=== PATIENT | male | born 1935 | race Two or more races ===

== ENCOUNTER 2021-01-12 20:16 | Emergency (ER) | payer MEDICARE, OTHER ==
[~2021-01-12] VITALS: Ht 177.8 cm; Wt 70.3 kg
--- NOTE | 2021-01-12 20:20 | NUR ---
[id number] FROM HOME C/O BLEEDING FROM SHUNT X40MIN WOOD MACHINE CARVER LEFT UPPER EXTREMITY. THE PATIENT DENIES PAIN. IN ROOM AIR AND DENIES SOB. RESPIRATION REGULAR AND UNLABORED. ATTACHED ON A MONITOR. WILL CONTINUE TO MONITOR.
[2021-01-12 20:57] LABS: BASOPHILS # (AUTO) 0.1 /CMM (0.0-0.2); BASOPHILS % (AUTO) 1.3 % (0.0-2.0); EOSINOPHILS % (AUTO) 1.6 % (0.0-6.0); HEMATOCRIT 32 % (39-51); HEMOGLOBIN 10.2 g/dL (13.5-17.5); LYMPHOCYTES # (AUTO) 0.7 /CMM (0.8-4.8); LYMPHOCYTES % (AUTO) 12.5 % (20.0-44.0); MEAN CORPUSCULAR HGB CONC 32 g/dl (31.0-36.0); MEAN CORPUSCULAR VOLUME 115 fL (80-96); MONOCYTES # (AUTO) 0.5 /CMM (0.1-1.30); MONOCYTES % (AUTO) 9.4 % (2.0-12.0); NEUTROPHILS # (AUTO) 4.2 /CMM (1.8-8.9); NEUTROPHILS % (AUTO) 75.2 % (43.0-81.0); PLATELET COUNT (AUTO) 117 /CMM (150-450); RED BLOOD CELL COUNT(AUTO) 2.76 MIL/uL (4.5-6.0); WHITE BLOOD COUNT (AUTO) 5.6 K/uL (4.3-11.0)
[2021-01-12 21:06] LABS: CALCIUM, SERUM 8.9 mg/dL (8.5-10.1); CARBON DIOXIDE 35 mmol/L (21-32); CHLORIDE 104 mmol/L (98-107); CREATININE 3.2 mg/dL (0.6-1.3); GLUCOSE 109 mg/dL (74-106); POTASSIUM 3.8 mmol/L (3.5-5.1); SODIUM SERUM 143 mmol/L (136-145); UREA NITROGEN, BLOOD 16 mg/dL (7-18)
[2021-01-12 21:45] LABS: BAND % (MANUAL) 2 % (0.0-5.0); EOSINOPHILS % (MANUAL) 1 % (0-4); LYMPHOCYTES % (MANUAL) 10 % (16-48); MONOCYTES % (MANUAL) 9 % (0-11.0); NEUTROPHILS % (MANUAL) 78 (42-76)
--- NOTE | 2021-01-12 23:18 | NUR ---
[facility] ETA 30-40MINUTES
--- NOTE | 2021-01-13 00:02 | NUR ---
GAVE REPORT TO EMS ALONG WITH D/C PAPERWORK
[2021-01-13 00:09] VITALS: BP 145/77
== END 2021-01-13 00:02 | disposition home or self-care (01) ==
LOC: ER 20:19
DX: T82.511A Breakdown (mechanical) of surgically created arteriovenous shunt, initial encounter (principal); I12.0 Hypertensive chronic kidney disease with stage 5 chronic kidney disease or end stage renal disease; E11.22 Type 2 diabetes mellitus with diabetic chronic kidney disease; N18.6 End stage renal disease; J44.9 Chronic obstructive pulmonary disease, unspecified; Z99.2 Dependence on renal dialysis
CPT/HCPCS: 36415; 71045; 80048; 85007; 85025; 85730; 99284; A6403

== ENCOUNTER 2021-04-28 19:15 | Inpatient (IN) | payer MEDICARE, OTHER ==
[~2021-04-28] VITALS: Ht 175.3 cm; Wt 72.1 kg
--- NOTE | 2021-04-28 19:30 | NUR ---
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 PATIENT IS A/O X 4, RR EVEN AND UNLABORED, NO SIGNS OF SOB NOTED. PATIENT CONNECTED TO NET MOBILE DEVELOPER AND POX.
--- NOTE | 2021-04-28 19:46 | NUR ---
MOVE SHEET SUBMITTED AND CALLED FOR TELE BED.
[2021-04-28 19:48] LABS: BASOPHILS # (AUTO) 0.1 K/uL (0.0-0.2); BASOPHILS % (AUTO) 0.8 % (0.0-2.0); EOSINOPHILS % (AUTO) 2.2 % (0.0-6.0); HEMATOCRIT 29 % (39-51); HEMOGLOBIN 9.2 g/dL (13.5-17.5); LYMPHOCYTES # (AUTO) 2.4 K/uL (0.8-4.8); LYMPHOCYTES % (AUTO) 28.3 % (20.0-44.0); MEAN CORPUSCULAR HGB CONC 32 g/dl (31.0-36.0); MEAN CORPUSCULAR VOLUME 111 fL (80-96); MONOCYTES # (AUTO) 1.3 K/uL (0.1-1.30); MONOCYTES % (AUTO) 15.5 % (2.0-12.0); NEUTROPHILS # (AUTO) 4.5 K/uL (1.8-8.9); NEUTROPHILS % (AUTO) 53.2 % (43.0-81.0); PLATELET COUNT (AUTO) 172 K/uL (150-450); RED BLOOD CELL COUNT(AUTO) 2.63 MIL/uL (4.5-6.0); WHITE BLOOD COUNT (AUTO) 8.4 K/uL (4.3-11.0)
[2021-04-28 20:01] LABS: CALCIUM, SERUM 9.1 mg/dL (8.5-10.1); CARBON DIOXIDE 21 mmol/L (21-32); CHLORIDE 104 mmol/L (98-107); CREATININE 6.2 mg/dL (0.6-1.3); GLUCOSE 173 mg/dL (74-106); POTASSIUM 3.9 mmol/L (3.5-5.1); SODIUM SERUM 140 mmol/L (136-145); UREA NITROGEN, BLOOD 50 mg/dL (7-18)
[2021-04-28] MEDS ORDERED: ACETAMINOPHEN 325 MG TABLET PO ONE (20:30)
[2021-04-28] MEDS ORDERED: ACETAMINOPHEN 325 MG TABLET ONE (20:33)
[2021-04-28] MEDS ORDERED: ALBUMIN 25% 50 ML IV ONE (20:47)
[2021-04-28] MEDS ORDERED: ALBUMIN 25% 12.5 GM/50 ML BOTTLE IV ONE (21:00)
[2021-04-28] MEDS ORDERED: IV NS 0.9% 250 ML BAG IV ONE (21:00)
[2021-04-28 21:13] LABS: BAND % (MANUAL) 4 % (0.0-5.0); EOSINOPHILS % (MANUAL) 3 % (0-4); LYMPHOCYTES % (MANUAL) 31 % (16-48); MONOCYTES % (MANUAL) 10 % (0-11.0); NEUTROPHILS % (MANUAL) 52 (42-76)
--- NOTE | 2021-04-28 21:52 | NUR ---
GOT BED 327-1
--- NOTE | 2021-04-28 22:14 | NUR ---
REPORT GIVEN TO BRAD RAY
--- NOTE | 2021-04-28 22:26 | NUR ---
PT WAS TRANSFERRED TO 327 UNDER ACLS
[2021-04-28 22:30] VITALS: BP_SYST 109; BP_SYST 133; BP_DIAS 49; BP_DIAS 51
--- NOTE | 2021-04-28 22:30 | NUR ---
HIDE SALTERASBESTOS TEXTILE SUPERVISOR NOTE PT TRANSPORTED VIA GURNEY TO UNIT AT THIS TIME. PT ADMITTED TO TELE UNDER DR. RACHEL FERRER FOR ADMITTING DX OF DIALYSIS ACCESS BLEED, ANEMIA, AND GENERALIZED WEAKNESS. A/O X4, JORDANIAN-SPEAKING. PT'S SON, BENJIE, AT BEDSIDE AND STATED THAT HE WILL OBTAIN LIST OF PT'S HOME MEDS. PT STABLE ON ROOM AIR. NO SOB OR S/S OF RESPIRATORY DISTRESS NOTED. PT ON EXTERNAL DOG BREEDER READING ST AT 102 BPM. PT HAS NO C/O PAIN OR DISCOMFORT AT THIS TIME. IV ACCESS IN RIGHT AC #20. DRESSING NOTED OVER LEFT ARM A/V FISTULA. PT ORIENTED TO STAFF, ROOM, AND UNIT. SAFETY MEASURES MAINTAINED. BED IN LOWEST LOCKED POSITION, HOB ELEVATED, SIDE RAILS UP X2. CALL LIGHT AND TABLE WITHIN REACH. WILL CONTINUE TO MONITOR.
--- NOTE | 2021-04-28 22:40 | NUR ---
PT'S SON, BENJIE, AT BEDSIDE AND STATED THAT HE WILL OBTAIN LIST OF PT'S HOME MEDS. HE CAN ALSO BE REACHED AT .
[2021-04-28] MEDS ORDERED: MAGNESIUM HYDROXIDE 30 ML UDC PO PRN (23:00)
[2021-04-28] MEDS ORDERED: ONDANSETRON HCL/PF 4 MG/2 ML VIAL IVP PRN (23:00)
[2021-04-28] MEDS ORDERED: DEXTROSE 50%-WATER 50 ML DISP.SYRIN IV PRN (23:00)
[2021-04-28] MEDS ORDERED: ZOLPIDEM TARTRATE 5 MG TABLET PO PRN (23:00)
[2021-04-28] MEDS ORDERED: Z GUARD REMEDY 2 OZ OINT TP PRN (23:00)
[2021-04-29] VITALS: BP 146/71
[2021-04-29 04:00] VITALS: BP 128/62
[2021-04-29 06:55] LABS: BASOPHILS % (AUTO) 0.4 % (0.0-2.0); EOSINOPHILS % (AUTO) 0.5 % (0.0-6.0); HEMATOCRIT 23 % (39-51); HEMOGLOBIN 7.4 g/dL (13.5-17.5); LYMPHOCYTES # (AUTO) 0.7 K/uL (0.8-4.8); LYMPHOCYTES % (AUTO) 9.6 % (20.0-44.0); MEAN CORPUSCULAR HGB CONC 32 g/dl (31.0-36.0); MEAN CORPUSCULAR VOLUME 109 fL (80-96); MONOCYTES # (AUTO) 0.7 K/uL (0.1-1.30); MONOCYTES % (AUTO) 9.5 % (2.0-12.0); NEUTROPHILS # (AUTO) 6.2 K/uL (1.8-8.9); PLATELET COUNT (AUTO) 131 K/uL (150-450); RED BLOOD CELL COUNT(AUTO) 2.12 MIL/uL (4.5-6.0); WHITE BLOOD COUNT (AUTO) 7.7 K/uL (4.3-11.0)
[2021-04-29 07:10] LABS: CARBON DIOXIDE 26 mmol/L (21-32); CHLORIDE 106 mmol/L (98-107); CREATININE 6.9 mg/dL (0.6-1.3); GLUCOSE 177 mg/dL (74-106); MAGNESIUM 1.9 mg/dL (1.8-2.4); POTASSIUM 4.2 mmol/L (3.5-5.1); SODIUM SERUM 144 mmol/L (136-145); UREA NITROGEN, BLOOD 57 mg/dL (7-18)
[2021-04-29 07:13] LABS: IRON, SERUM 47 ug/dl (50-175); TOTAL IRON BINDING CAPACITY 106 ug/dl (250-450)
--- NOTE | 2021-04-29 07:15 | NUR ---
PT REFUSED ACCUCHECK AT THIS TIME. EDUCATED PT ON RISKS OF REFUSING ACCUCHECK AND PT UNDERSTANDS. WILL CONTINUE TO MONITOR.
--- NOTE | 2021-04-29 07:15 | NUR ---
RN OPENING NOTE RECEIVED PATIENT IN BED. A/O X4. WALLISIAN SPEAKING. ON ROOM AIR, NO SOB NOTED. IN NO APPARENT DISTRESS. TELE READING SHOWS SR 76 WITH PAC. IV ACCESS ON R AC #20 G, INTACT AND PATENT. SAFETY MEASURES MAINTAINED. BED IN LOWEST POSITION, BRAKES LOCKED. SIDE RAILS UP X2. CALL LIGHT WITHIN REACH. WILL CONTINUE PLAN OF CARE.
--- NOTE | 2021-04-29 07:18 | NUR ---
GOLF CLUB MANAGER CLOSING NOTE PT IS AWAKE IN BED. A/O X4, BELIZEAN-SPEAKING. PT STABLE ON ROOM AIR. NO SOB OR S/S OF RESPIRATORY DISTRESS NOTED. PT ON EXTERNAL NURSING ATTENDANT READING ST AT 100 BPM. PT HAS NO C/O PAIN OR DISCOMFORT AT THIS TIME. IV ACCESS IN RIGHT AC #20. DRESSING NOTED OVER LEFT ARM A/V FISTULA. ALL NEEDS HAVE BEEN MET. SAFETY PRECAUTIONS MAINTAINED AT ALL TIMES. BED IN LOWEST LOCKED POSITION, HOB ELEVATED, SIDE RAILS UP X2. CALL LIGHT AND TABLE WITHIN REACH. WILL ENDORSE TO ONCOMING NURSE FOR RUDDY.
[2021-04-29] MEDS: BLOOD SUGAR DIAGNOSTIC 1 EACH STRIP IN SCH ×5 (07:27→23:09)
[2021-04-29] MEDS: ACETAMINOPHEN 325 MG TABLET PO PRN (08:10)
[2021-04-29 10:42] LABS: CHOLESTEROL 106 mg/dL (<200); HDL CHOLESTEROL 20 mg/dL (40-60); LDL 62 mg/dL (0-99); TRIGLYCERIDES 109 mg/dL (30-150)
[2021-04-29 11:46] LABS: BAND % (MANUAL) 2 % (0.0-5.0); LYMPHOCYTES % (MANUAL) 10 % (16-48); MONOCYTES % (MANUAL) 5 % (0-11.0); MYELOCYTES % 4 % (0-0); NEUTROPHILS % (MANUAL) 79 (42-76)
[2021-04-29 12:00] VITALS: BP 154/69
--- NOTE | 2021-04-29 12:12 | NUR ---
RN NOTE PATIENT REFUSED ACCUCHECK. HE SAID HE'S TIRED AND WANTS TO BE LEFT ALONE.
[2021-04-29 16:00] VITALS: BP 149/69
--- NOTE | 2021-04-29 18:20 | NUR ---
RN NOTE PATIENT SIGNED ALL PROCEDURE CONSENT FOR REPAIR OF POSSIBLE CATHETER.
--- NOTE | 2021-04-29 18:49 | NUR ---
RN NOTE PATIENT WAS BROUGHT DOWN TO THE OPERATING ROOM FOR POSSIBLE REPAIR OF CATHETER.
[2021-04-29] MEDS ORDERED: LIDOCAINE 1% INJ 50 ML MDV IJ ONE (19:21)
[2021-04-29] MEDS ORDERED: FENTANYL PF 100MCG/2ML AMPUL ONE (19:26)
[2021-04-29 20:00] VITALS: BP 127/51
--- NOTE | 2021-04-29 20:37 | NUR ---
TELE/RN OPENING NOTE PATIENT ARRIVED TO FLOOR FROM OR AT APPROX. 20:30. X RAY EQUIPMENT TESTER AT BEDSIDE. VS: BP 127/51 HR 77 RR 20 R 97.8 O2 SAT 100% ON 2L O2 VIA NC. PATIENT HAD REPAIR TO LEFT UPPER ARM FISTULA. DRESSING IS CLEAN, DRY AND INTACT. DRESSING TO REMAIN ON PER ORDERS. PATIENT TO HAVE DIALYSIS TOMORROW USING LOWER PART OF LEFT AV FISTULA. PATIENT TO RECEIVED 1 UNIT PRBC DURING DIALYSIS TOMORROW. PATIENT DENIES PAIN AT THIS TIME. ALERT AND ORIENTED X 4. PRIMARILY TELUGU SPEAKING. ORDER TO RESUME RENAL DIET IN PLACE. CALL LIGHT WITHIN REACH. ASPIRATION, FALL AND SAFETY PRECAUTIONS MAINTAINED. WILL CONTINUE TO MONITOR.
[2021-04-29] MEDS ORDERED: ANESTHESIA TRAY IN PYXIS 1 EA TRAY MC ONE (21:48)
--- NOTE | 2021-04-29 23:00 | NUR ---
TELE/RN NOTE PATIENTS BLOOD GLUCOSE LEVEL IS 160. PATIENT REFUSING INSULIN AT THIS TIME. WILL CONTINUE TO MONITOR.
[2021-04-30] VITALS (8 sets, daily range): BP systolic 132–154; BP diastolic 55–76
--- NOTE | 2021-04-30 06:03 | NUR ---
TELE/RN NOTE PATIENT REFUSED LABS THIS AM X 2 ATTEMPTS. WILL ENDORSE TO AM SHIFT RN.
[2021-04-30] MEDS: BLOOD SUGAR DIAGNOSTIC 1 EACH STRIP IN SCH ×5 (06:35→22:03)
--- NOTE | 2021-04-30 06:48 | NUR ---
TELE/RN NOTE PATIENT REFUSED BLOOD GLUCOSE CHECK THIS AM. PATIENT ALSO REFUSED ADL CARE THIS AM. PATIENT GETTING ANGRY/AGGRESSIVE TOWARDS BOXING MACHINE OPERATOR. REFUSED X 2 ATTEMPTS.
--- NOTE | 2021-04-30 06:49 | NUR ---
TELE/RN CLOSING NOTE PATIENT CURRENTLY SLEEPING IN BED. ALERT AND ORIENTED X 4. ABLE TO MAKE NEEDS KNOWN. DENIES PAIN AT THIS TIME. PATIENT IS ON ROOM AIR WITH NO S/SX OF RESPIRATORY DISTRESS NOTED. IV ACCESS TO RIGHT AC #20G INTACT, PATENT AND SALINE LOCKED. DRESSING TO LEFT AVF CLEAN, DRY AND INTACT. TELE MONITOR READING SR WITH PVCS/PACS. CALL LIGHT WITHIN REACH. ASPIRATION, FALL AND SAFETY PRECAUTIONS MAINTAINED. WILL ENDORSE PLAN OF CARE TO ONCOMING SHIFT.
[2021-04-30] MEDS: ACETAMINOPHEN 325 MG TABLET PO PRN (08:51)
[2021-04-30] MEDS ORDERED: ISOS60TA72 PO (08:55)
[2021-04-30] MEDS ORDERED: GLIM1TAB18 PO (08:55)
[2021-04-30] MEDS ORDERED: INSU100V30 IJ (08:55)
[2021-04-30] MEDS ORDERED: INSU100V7 SQ (08:55)
[2021-04-30] MEDS ORDERED: VALS160T2 PO (08:55)
[2021-04-30] MEDS ORDERED: CETI-233 PO (08:55)
[2021-04-30] MEDS ORDERED: TAMS-12 PO (08:55)
[2021-04-30] MEDS ORDERED: FLUO15CR2 TP (08:55)
[2021-04-30] MEDS ORDERED: FAMO40TA7 PO (08:55)
[2021-04-30] MEDS ORDERED: TRAM50TA2 PO (08:55)
[2021-04-30] MEDS ORDERED: ERGO500040 PO (08:55)
[2021-04-30] MEDS ORDERED: FEBU40TA PO (08:55)
[2021-04-30] MEDS ORDERED: CLON0.1T PO (08:55)
[2021-04-30] MEDS ORDERED: METO25TA6 PO (08:55)
[2021-04-30] MEDS ORDERED: MYRBETRIQ PO (08:55)
[2021-04-30] MEDS ORDERED: ASPI-1169 PO (08:55)
[2021-04-30] MEDS ORDERED: NIFE-35 PO (08:55)
[2021-04-30] MEDS ORDERED: ROPI0.255 PO (08:55)
[2021-04-30] MEDS ORDERED: ATOR80TA PO (08:55)
[2021-04-30] MEDS ORDERED: TICA90TA PO (08:55)
--- NOTE | 2021-04-30 14:37 | NUR ---
Patient is AOx4 Belgian speaking watching tv request PRN Tylenol and it was effective, left arm fistula with dressing, is fall risk with bed alarm, patient is scheduled for surgery on 05/01, NPO @midnight, medication list has been updated, patient at 100% of meal no SOD nor SOB, V/S are as followed B/P 137/55, P 82, Resp. 18, Temp.98.4, O2Sat. 96%, call light is within reach, will continue to monitor.
[2021-04-30 18:43] LABS: BASOPHILS % (AUTO) 0.3 % (0.0-2.0); EOSINOPHILS % (AUTO) 1.7 % (0.0-6.0); LYMPHOCYTES # (AUTO) 0.7 K/uL (0.8-4.8); LYMPHOCYTES % (AUTO) 10.7 % (20.0-44.0); MEAN CORPUSCULAR HGB CONC 32 g/dl (31.0-36.0); MEAN CORPUSCULAR VOLUME 110 fL (80-96); MONOCYTES # (AUTO) 0.6 K/uL (0.1-1.30); MONOCYTES % (AUTO) 9.3 % (2.0-12.0); NEUTROPHILS # (AUTO) 4.9 K/uL (1.8-8.9); PLATELET COUNT (AUTO) 138 K/uL (150-450); WHITE BLOOD COUNT (AUTO) 6.3 K/uL (4.3-11.0)
[2021-04-30 18:44] LABS: RED BLOOD CELL COUNT(AUTO) 1.87 MIL/uL (4.5-6.0)
[2021-04-30 18:48] LABS: HEMATOCRIT 20 % (39-51); HEMOGLOBIN 6.6 g/dL (13.5-17.5)
[2021-04-30 20:08] LABS: BAND % (MANUAL) 4 % (0.0-5.0); EOSINOPHILS % (MANUAL) 1 % (0-4); LYMPHOCYTES % (MANUAL) 14 % (16-48); MONOCYTES % (MANUAL) 6 % (0-11.0); NEUTROPHILS % (MANUAL) 75 (42-76)
--- NOTE | 2021-04-30 20:43 | NUR ---
FARM MORTGAGE AGENT NOTES CLARIFIED ORDERS WITH NABIL INSTRUMENT TECHNICIAN APPRENTICE FOR BT RE PT'S LOW H/H. WITH NEW ORDERS TO TRANSFUSE 1 UNIT PRBC. WILL CONTINUE TO MONITOR.
--- NOTE | 2021-04-30 22:08 | NUR ---
PEG DRIVER NOTES 1ST UNIT PRBC STARTED. VSS. AFEBRILE. WILL CONTINUE TO MONITOR.
--- NOTE | 2021-04-30 22:20 | NUR ---
NBA PLAYER NOTES SPOKE WITH SON BENJIE. NOTIFIED HIM RE RAMESH'S PROCEDURE FOR HIS DAD. MADE AWARE RE RISKS AND BENEFITS OF PROCEDURE. TRANSLATED WITH HIS DAD. PT AWARE. PT SIGNED CONSENTS. WILL CONTINUE TO MONITOR.
--- NOTE | 2021-04-30 22:23 | NUR ---
PITCH GATHERER NOTES 1ST UNIT PRBC TRANSFUSING WELL. NO S/SX OF TRANSFUSION RXN NOTED. VSS. AFEBRILE. WILL CONTINUE TO MONITOR
--- NOTE | 2021-04-30 22:47 | NUR ---
LINE PRODUCER NOTES SPOKE WITH DR PERRY (ANESTHESIOLOGIST) RE PT'S BT STATUS. PER MD, PT NEEDS AT LEAST 2 UNITS OF PRBC TONIGHT. ALSO WILL NEED 2 UNITS OF TYPE & CROSS BLOOD FOR RAMESH'S PROCEDURE. ORDERS CLARIFIED WITH EPIC GROUND DEFENCE OFFICER FERRER WELL TESTING OPERATOR. WITH NEW ORDERS MADE. ORDERS NOTED AND CARRIED OUT. WILL CONTINUE TO MONITOR.
[2021-05-01] VITALS (10 sets, daily range): BP systolic 117–174; BP diastolic 64–83
--- NOTE | 2021-05-01 01:10 | NUR ---
BEEF CATTLE FARM MANAGER NOTES 1ST UNIT PRBC COMPLETED. NO S/SX OF TRANSFUSION RXN NOTED. VSS. AFEBRILE. WILL CONTINUE TO MONITOR
--- NOTE | 2021-05-01 01:28 | NUR ---
CURING MACHINE OPERATOR NOTES 2ND UNIT PRBC STARTED. VSS. AFEBRILE. WILL CONTINUE TO MONITOR.
--- NOTE | 2021-05-01 01:43 | NUR ---
EDGER FEEDER NOTES 2ND UNIT PRBC TRANSFUSING WELL. NO S/SX OF TRANSFUSION RXN NOTED. VSS. AFEBRILE. WILL CONTINUE TO MONITOR
--- NOTE | 2021-05-01 04:23 | NUR ---
OSTEOPATHIC RESIDENT NOTES 2ND UNIT PRBC COMPLETED. NO S/SX OF TRANSFUSION RXN NOTED. VSS. AFEBRILE. WILL CONTINUE TO MONITOR
[2021-05-01] MEDS: BLOOD SUGAR DIAGNOSTIC 1 EACH STRIP IN SCH ×4 (06:03→22:25)
[2021-05-01 06:22] LABS: BASOPHILS % (AUTO) 0.4 % (0.0-2.0); EOSINOPHILS % (AUTO) 1.8 % (0.0-6.0); HEMATOCRIT 26 % (39-51); HEMOGLOBIN 8.4 g/dL (13.5-17.5); LYMPHOCYTES % (AUTO) 14.2 % (20.0-44.0); MEAN CORPUSCULAR HGB CONC 33 g/dl (31.0-36.0); MEAN CORPUSCULAR VOLUME 100 fL (80-96); MONOCYTES # (AUTO) 0.6 K/uL (0.1-1.30); MONOCYTES % (AUTO) 8.8 % (2.0-12.0); NEUTROPHILS # (AUTO) 5.1 K/uL (1.8-8.9); NEUTROPHILS % (AUTO) 74.8 % (43.0-81.0); PLATELET COUNT (AUTO) 130 K/uL (150-450); RED BLOOD CELL COUNT(AUTO) 2.55 MIL/uL (4.5-6.0); WHITE BLOOD COUNT (AUTO) 6.8 K/uL (4.3-11.0)
--- NOTE | 2021-05-01 06:33 | NUR ---
LEATHER CARVER NOTES AWAKE & RESPONSIVE. NOT IN ANY DISTRESS. NO SOB NOTED. DENIES ANY PAIN OR DISCOMFORT AT THIS TIME. ON TELE SR @ 83 WITH PACS WITH IV-HL PATENT & INTACT. AM CARE DONE. MONITORED ACCORDINGLY. CALL LIGHT WITHIN REACH. BED IN LOWEST POSITION. SR UP X 2 FOR SAFETY. WILL ENDORSE TO NEXT SHIFT.
[2021-05-01 07:04] LABS: CALCIUM, SERUM 8.8 mg/dL (8.5-10.1); CARBON DIOXIDE 24 mmol/L (21-32); CHLORIDE 106 mmol/L (98-107); GLUCOSE 79 mg/dL (74-106); MAGNESIUM 1.8 mg/dL (1.8-2.4); PHOSPHORUS 5.3 mg/dL (2.5-4.9); POTASSIUM 4.6 mmol/L (3.5-5.1); SODIUM SERUM 142 mmol/L (136-145); UREA NITROGEN, BLOOD 69 mg/dL (7-18)
[2021-05-01 07:09] LABS: CREATININE 7.7 mg/dL (0.6-1.3)
--- NOTE | 2021-05-01 07:42 | NUR ---
RN OPENING NOTE PT AWAKE IN BED RESTING. ON RA WITH NO SOB OR RESPIRATORY DISTRESS PRESENT. A/O X4 AND ECUADOREAN SPEAKING. BILINGUAL RESEARCH INTERVIEWER NEEDED. ON HIGHWAY PATROL OFFICER. NO EDEMA PRESENT. ON BEDREST WITH DIAPER PRESENT. L ARM FISTULA WITH DRESSING PRESENT. DRESSING TO NOT BE REMOVED PER MD ORDER. NPO POST MIDNIGHT DUE TO UPCOMING SURGERY. CONSENTS AND CHECKLIST IN CHART. IV PRESENT ON R AC 20G AND FLUSHES WELL. LABS AND ORDERS REVIEWED. SAFETY MEASURES IN PLACE. SIDE RAILS RAISED. BED LOWERED. CALL LIGHT WITHIN REACH. WILL CONTINUE TO MONITOR.
[2021-05-01 09:57] LABS: BAND % (MANUAL) 3 % (0.0-5.0); EOSINOPHILS % (MANUAL) 1 % (0-4); LYMPHOCYTES % (MANUAL) 17 % (16-48); MONOCYTES % (MANUAL) 11 % (0-11.0); MYELOCYTES % 1 % (0-0); NEUTROPHILS % (MANUAL) 67 (42-76)
--- NOTE | 2021-05-01 11:03 | NUR ---
RN NOTE PT DIALYSIS POSTPONED TO POST CATHETER PLACEMENT. LABS REVIEWED BY MD AND DIALYSIS NURSE. MD OKAYED FOR DIALYSIS POSTPONEMENT. WILL CONTINUE TO MONITOR.
--- NOTE | 2021-05-01 15:33 | NUR ---
RN NOTE PT TRANSFERRED TO OR FOR PROCEDURE. CONSENTS SIGNED BY PT AND PREPROCEDURE CHECKLIST DONE. PT IN STABLE CONDITION.
[2021-05-01] MEDS ORDERED: HEPARIN SODIUM, PORCINE 1,000 UNIT/ML VIAL ONE ×2 (15:51→16:52)
[2021-05-01] MEDS ORDERED: IOHEXOL 240MG/ML 50 ML IV ONE (15:51)
[2021-05-01] MEDS ORDERED: LIDOCAINE 1% INJ 50 ML MDV IJ ONE (15:52)
[2021-05-01] MEDS ORDERED: FENTANYL PF 100MCG/2ML AMPUL ONE (15:54)
[2021-05-01] MEDS ORDERED: Medication Not On Formulary EA (Cetirizine Hcl (Zyrtec) 10 MG) PO PRN (16:30)
[2021-05-01] MEDS ORDERED: ropiniROLE 0.5 MG TABLET PO PRN (16:30)
[2021-05-01] MEDS ORDERED: CLONIDINE HCL 0.1 MG TABLET PO PRN (16:30)
[2021-05-01] MEDS ORDERED: FLUOCINONIDE TP PRN (16:30)
[2021-05-01] MEDS ORDERED: [UNRECOGNIZED DRUG - OTHER] TP PRN (16:30)
[2021-05-01] MEDS: VALSARTAN 80 MG TABLET PO SCH (17:00)
[2021-05-01] MEDS: METOPROLOL TARTRATE 25 MG TABLET PO SCH (17:00)
[2021-05-01] MEDS ORDERED: INSULIN REGULAR, HUMAN 100 UNIT/ML 3 ML VIAL IJ SCH (17:30)
[2021-05-01] MEDS ORDERED: hydrALAZINE HCL IV 20 MG VIAL ONE (18:02)
--- NOTE | 2021-05-01 18:07 | NUR ---
RN NOTE PT 1700 MEDS NOT GIVEN TO PT NOT PRESENT IN DEPARTMENT. PT UNDERGOING PROCEDURE.
[2021-05-01] MEDS: TRAMADOL HCL 50 MG TABLET PO PRN (18:58)
[2021-05-01 19:17] LABS: BASOPHILS # (AUTO) 0.1 K/uL (0.0-0.2); BASOPHILS % (AUTO) 1.6 % (0.0-2.0); EOSINOPHILS % (AUTO) 2.6 % (0.0-6.0); HEMATOCRIT 27 % (39-51); HEMOGLOBIN 8.6 g/dL (13.5-17.5); LYMPHOCYTES # (AUTO) 0.5 K/uL (0.8-4.8); LYMPHOCYTES % (AUTO) 8.4 % (20.0-44.0); MEAN CORPUSCULAR HGB CONC 32 g/dl (31.0-36.0); MEAN CORPUSCULAR VOLUME 100 fL (80-96); MONOCYTES # (AUTO) 0.4 K/uL (0.1-1.30); MONOCYTES % (AUTO) 7.4 % (2.0-12.0); NEUTROPHILS # (AUTO) 4.4 K/uL (1.8-8.9); PLATELET COUNT (AUTO) 139 K/uL (150-450); RED BLOOD CELL COUNT(AUTO) 2.64 MIL/uL (4.5-6.0); WHITE BLOOD COUNT (AUTO) 5.6 K/uL (4.3-11.0)
--- NOTE | 2021-05-01 19:20 | NUR ---
RN CLOSING NOTE PT AWAKE IN BED RESTING. ON 2L NC O2 WITH NO SOB OR RESPIRATORY DISTRESS PRESENT. A/O X4 AND BELGIAN SPEAKING. ON FIELD PIPELINES SUPERVISOR. NO EDEMA PRESENT. ON BEDREST WITH DIAPER PRESENT. R CW HD CATH PRESENT. HD ORDERED TOMORROW. L ARM DRESSING PRESENT. WOUND CARE ORDERED. RENAL DIET. IV PRESENT ON R AC 20G AND FLUSHES WELL. LABS AND ORDERS REVIEWED. ROUTINE MEDS GIVEN. SAFETY MEASURES IN PLACE. SIDE RAILS RAISED. BED LOWERED. CALL LIGHT WITHIN REACH. REPORT GIVEN TO NIGHT NURSE FOR RUDDY.
[2021-05-01] MEDS ORDERED: VANCOMYCIN 500 MG in IV D5W 100 ML IV PRN (19:30)
[2021-05-01 19:43] LABS: CALCIUM, SERUM 8.4 mg/dL (8.5-10.1); CARBON DIOXIDE 27 mmol/L (21-32); CHLORIDE 106 mmol/L (98-107); GLUCOSE 85 mg/dL (74-106); POTASSIUM 4.8 mmol/L (3.5-5.1); SODIUM SERUM 143 mmol/L (136-145); UREA NITROGEN, BLOOD 69 mg/dL (7-18)
[2021-05-01 19:46] LABS: CREATININE 8.1 mg/dL (0.6-1.3)
[2021-05-01] MEDS: ACETAMINOPHEN 325 MG TABLET PO PRN (20:11)
[2021-05-01] MEDS ORDERED: VANCOMYCIN 1 GM in IV D5W 250 ML IV ONE (21:00)
[2021-05-01] MEDS ORDERED: ATORVASTATIN 40 MG TABLET PO SCH (22:00)
[2021-05-01] MEDS ORDERED: TAMSULOSIN 0.4 MG CAP.SR.24H PO SCH (22:00)
[2021-05-01] MEDS: INSULIN REGULAR, HUMAN 100 UNIT/ML 3 ML VIAL SQ PRN (22:28)
--- NOTE | 2021-05-01 22:30 | NUR ---
Nalini SALINAS Notes Patient's blood sugar at 2220 was 153mg/dL. Addendum: 05/02/21 at 0744 by CALVIN LOWE RN Pt refused his insulin.
[2021-05-02] VITALS: BP 144/98
[2021-05-02] MEDS: TRAMADOL HCL 50 MG TABLET PO PRN (04:04)
[2021-05-02 06:59] LABS: BASOPHILS % (AUTO) 0.3 % (0.0-2.0); EOSINOPHILS % (AUTO) 1.2 % (0.0-6.0); HEMATOCRIT 24 % (39-51); HEMOGLOBIN 7.9 g/dL (13.5-17.5); LYMPHOCYTES # (AUTO) 0.5 K/uL (0.8-4.8); LYMPHOCYTES % (AUTO) 6.5 % (20.0-44.0); MEAN CORPUSCULAR HGB CONC 33 g/dl (31.0-36.0); MEAN CORPUSCULAR VOLUME 100 fL (80-96); MONOCYTES # (AUTO) 0.5 K/uL (0.1-1.30); MONOCYTES % (AUTO) 5.7 % (2.0-12.0); NEUTROPHILS % (AUTO) 86.3 % (43.0-81.0); PLATELET COUNT (AUTO) 141 K/uL (150-450); RED BLOOD CELL COUNT(AUTO) 2.42 MIL/uL (4.5-6.0); WHITE BLOOD COUNT (AUTO) 8.1 K/uL (4.3-11.0)
[2021-05-02 07:20] LABS: CALCIUM, SERUM 8.3 mg/dL (8.5-10.1); CARBON DIOXIDE 25 mmol/L (21-32); CHLORIDE 105 mmol/L (98-107); GLUCOSE 86 mg/dL (74-106); MAGNESIUM 1.8 mg/dL (1.8-2.4); PHOSPHORUS 6.4 mg/dL (2.5-4.9); POTASSIUM 5.3 mmol/L (3.5-5.1); SODIUM SERUM 140 mmol/L (136-145); UREA NITROGEN, BLOOD 73 mg/dL (7-18)
[2021-05-02 07:24] LABS: CREATININE 7.9 mg/dL (0.6-1.3)
[2021-05-02] MEDS: BLOOD SUGAR DIAGNOSTIC 1 EACH STRIP IN SCH ×2 (07:34→12:30)
[2021-05-02] MEDS: INSULIN REGULAR, HUMAN 100 UNIT/ML 3 ML VIAL SQ PRN (07:36)
--- NOTE | 2021-05-02 07:44 | NUR ---
inspector of dredging Notes Patient's blood sugar at 0636 was 145mg/dL. Patient refused insulin.
--- NOTE | 2021-05-02 08:00 | NUR ---
received pt. in am alert and oriented. component inspector light often.micronesian speaking only.
[2021-05-02] MEDS: ACETAMINOPHEN 325 MG TABLET PO PRN (08:01)
[2021-05-02] MEDS: VALSARTAN 80 MG TABLET PO SCH (09:00)
[2021-05-02] MEDS: METOPROLOL TARTRATE 25 MG TABLET PO SCH (09:00)
[2021-05-02] MEDS ORDERED: NIFEdipine XL (30MG) 30 MG TAB PO SCH (09:00)
[2021-05-02] MEDS ORDERED: FAMOTIDINE (20 MG) 20 MG TABLET PO SCH (09:00)
[2021-05-02] MEDS ORDERED: ISOSORBIDE MONONITRATE (30MG) 30 MG TAB.SR.24H PO SCH (09:00)
[2021-05-02] MEDS ORDERED: Medication Not On Formulary EA ([Myrbetriq] 25 MG) PO SCH (09:00)
[2021-05-02] MEDS ORDERED: VANCOMYCIN 1 GM in IV D5W 250 ML IV ONE (10:00)
--- NOTE | 2021-05-02 12:47 | NUR ---
REFUSED INSULIN COVERAGE.
--- NOTE | 2021-05-02 15:30 | NUR ---
dialysis completed.bp down,2 liters removed.
--- NOTE | 2021-05-02 16:00 | NUR ---
refused discharge photos.
[2021-05-02 17:36] VITALS: BP 136/89
--- NOTE | 2021-05-02 17:44 | NUR ---
son here.given all instructions.lt. arm dressing done.son observing.to have furnace combination analyst do dressing.review of all home meds.all belongings sent home with pt.taken to lobby via w/c accompanied by andres and son.
== END 2021-05-02 17:03 | disposition home or self-care (01) | DRG 252 ==
LOC: ER 19:17 → TELE 22:05
PROVIDERS: ADMIT Nurse Practitioner Family; ATTEND Student in an Organized Health Care Education/Training Program
PROC: 03LY0ZZ Occlusion of Upper Artery, Open Approach (ICD-10-PCS; principal; 2021-04-29)
PROC: 30233N1 Transfusion of Nonautologous Red Blood Cells into Peripheral Vein, Percutaneous Approach (ICD-10-PCS; 2021-04-30)
PROC: 03LY0ZZ Occlusion of Upper Artery, Open Approach (ICD-10-PCS; 2021-05-01)
PROC: 03U80JZ Supplement Left Brachial Artery with Synthetic Substitute, Open Approach (ICD-10-PCS; 2021-05-01)
PROC: 05HM33Z Insertion of Infusion Device into Right Internal Jugular Vein, Percutaneous Approach (ICD-10-PCS; 2021-05-01)
PROC: B513YZA Fluoroscopy of Right Jugular Veins using Other Contrast, Guidance (ICD-10-PCS; 2021-05-01)
PROC: 5A1D70Z Performance of Urinary Filtration, Intermittent, Less than 6 Hours Per Day (ICD-10-PCS; 2021-05-02)
DX: T82.838A Hemorrhage due to vascular prosthetic devices, implants and grafts, initial encounter (principal); N18.6 End stage renal disease; I12.0 Hypertensive chronic kidney disease with stage 5 chronic kidney disease or end stage renal disease; Y83.2 Surgical operation with anastomosis, bypass or graft as the cause of abnormal reaction of the patient, or of later complication, without mention of misadventure at the time of the procedure; Y92.009 Unspecified place in unspecified non-institutional (private) residence as the place of occurrence of the external cause; Z20.822 Contact with and (suspected) exposure to COVID-19; E11.22 Type 2 diabetes mellitus with diabetic chronic kidney disease; D53.9 Nutritional anemia, unspecified; D63.1 Anemia in chronic kidney disease; J44.9 Chronic obstructive pulmonary disease, unspecified; M89.8X9 Other specified disorders of bone, unspecified site; Z99.2 Dependence on renal dialysis; I95.9 Hypotension, unspecified; R53.1 Weakness
CPT/HCPCS: 36415; 71045-TC; 80048-TC; 80061-TC; 80202-TC; 82962-TC; 83540-TC; 83735-TC; 84100-TC; 85025-TC; 85730-TC; 86850-TC; 87070-TC; 87081-TC; 90935-TC; 97116-TC; 97530-TC; A6253; A6403; A6407; C9803; G0378; J0360; J0690; J1644; J1815; J2405; J3010; J3370; J3490; J7050; J7060; P9016; P9047; Q9966

== ENCOUNTER 2021-06-01 16:45 | Inpatient (IN) | payer MEDICARE, OTHER ==
[~2021-06-01] VITALS: Ht 165.1 cm; Wt 70.4 kg
[~2021-06-01 16:45] MED LIST: ASPI-1169 PO; ATOR80TA PO; CETI-233 PO; CLON0.1T PO; ERGO500040 PO; FAMO40TA7 PO; FEBU40TA PO; FLUO15CR2 TP; GLIM1TAB18 PO; INSU100V30 IJ; INSU100V7 SQ; ISOS60TA72 PO; METO25TA6 PO; MYRBETRIQ PO; NIFE-35 PO; ROPI0.255 PO; TAMS-12 PO; TICA90TA PO; TRAM50TA2 PO; VALS160T2 PO
[2021-06-02] VITALS (34 sets, daily range): BP systolic 94–151; BP diastolic 23–91
[2021-06-02] MEDS ORDERED: ONDANSETRON HCL/PF 4 MG/2 ML VIAL IV PRN (01:30)
[2021-06-02] MEDS ORDERED: hydrALAZINE HCL IV 20 MG VIAL IV PRN (01:30)
[2021-06-02] MEDS ORDERED: ACETAMINOPHEN 325 MG TABLET PO PRN (01:30)
[2021-06-02] MEDS ORDERED: HYDROMORPHONE 1 MG/1 ML DISP.SYRIN IV PRN (01:30)
[2021-06-02] MEDS ORDERED: BIVALIRUDIN IV PRN ×2 (02:00→16:00)
[2021-06-02] MEDS ORDERED: BIVALIRUDIN 250 MG/VIAL IV ONE (02:00)
[2021-06-02] MEDS ORDERED: NS 0.9% IV PRN ×2 (02:00→16:00)
--- NOTE | 2021-06-02 03:12 | NUR ---
ADMIT NOTE RECEIVED PATIENT VIA GURNEY ACCOMPANIED BY RODERICK SALINAS AND TWO EMT'S. PATIENT SAFELY TRANSFERRED TO BED. TELE MONITOR ON, HR 60'S. PATIENT IS ALERT AND ORIENTED X 1, CONFUSED. ON O2 2L VIA NASAL CANNULA, NO SIGNS OF ANY RESPIRATORY DISTRESS. DENIES ANY PAIN AT THIS TIME. ADMITTING DX: NSTEMI. HX: 2 STENTS RCA, ESRD (T,TH,SAT), CAD, HLD, AND SMOKER. WITH RIGHT CHEST PERMACATH, DRESSING DRY AND INTACT. SKIN ASSESSMENT DONE, NOTED WITH SCROTUM REDNESS, LEFT BUTTOCK REDNESS, SACRUM SCAB, LEFT UPPER ARM WOUND, IV ACCESS ON RIGHT AC #20 INFUSING ANGIOMAX 15ML/HR. AND RIGHT HAND #22 PATENT AND INTACT. ALL ORDERS REVIEWED AND VERIFIED WITH DR. OLIVARES, ORDERS TO CONTINUE CURRENT MEDS. BED LOCKED AND IN LOWEST POSITION. CALL LIGHT WITHIN REACH. ALL NEEDS ANTICIPATED. Addendum: 06/02/21 at 0330 by OLIVIA MAGUIRE RN PATIENT ADMITTED AT 0010.
--- NOTE | 2021-06-02 03:20 | NUR ---
RECEIVED PATIENT ON ANGIOMAX @ 15ML/HR. DR. OLIVARES AWARE AND WITH ORDERS TO CONTINUE CURRENT MEDICATION. ARMANDO KRUEGER CARSON UNABLE TO VERIFY MEDICATION AND TO HAVE [facility] TO VERIFY MEDICATION. CHARGE NURSE LIZ AWARE.
[2021-06-02 04:30] LABS: BASOPHILS % (AUTO) 0.3 % (0.0-2.0); EOSINOPHILS % (AUTO) 1.4 % (0.0-6.0); HEMATOCRIT 28 % (39-51); HEMOGLOBIN 8.9 g/dL (13.5-17.5); LYMPHOCYTES # (AUTO) 0.8 K/uL (0.8-4.8); LYMPHOCYTES % (AUTO) 12.3 % (20.0-44.0); MEAN CORPUSCULAR HGB CONC 32 g/dl (31.0-36.0); MEAN CORPUSCULAR VOLUME 103 fL (80-96); MONOCYTES # (AUTO) 0.6 K/uL (0.1-1.30); MONOCYTES % (AUTO) 9.6 % (2.0-12.0); NEUTROPHILS # (AUTO) 4.7 K/uL (1.8-8.9); NEUTROPHILS % (AUTO) 76.4 % (43.0-81.0); PLATELET COUNT (AUTO) 156 K/uL (150-450); WHITE BLOOD COUNT (AUTO) 6.2 K/uL (4.3-11.0)
[2021-06-02 04:54] LABS: ALBUMIN 2.4 g/dL (3.4-5.0); ALKALINE PHOSPHATASE 76 U/L (46-116); ASPARTATE AMINOTRANSFERASE 17 U/L (15-37); BILIRUBIN,TOTAL 0.3 mg/dL (0.2-1.0); CALCIUM, SERUM 8.6 mg/dL (8.5-10.1); CARBON DIOXIDE 24 mmol/L (21-32); CHLORIDE 103 mmol/L (98-107); CREATININE 6.4 mg/dL (0.6-1.3); GLUCOSE 102 mg/dL (74-106); PHOSPHORUS 4.2 mg/dL (2.5-4.9); POTASSIUM 4.7 mmol/L (3.5-5.1); SODIUM SERUM 138 mmol/L (136-145); TOTAL PROTEIN, SERUM 6.2 g/dL (6.4-8.2); UREA NITROGEN, BLOOD 41 mg/dL (7-18)
[2021-06-02 04:58] LABS: CHOLESTEROL 81 mg/dL (<200); HDL CHOLESTEROL 24 mg/dL (40-60); LDL 40 mg/dL (0-99); THYROID STIMULATING HORMONE 0.692 uIU/mL (0.358-3.74); TRIGLYCERIDES 97 mg/dL (30-150)
[2021-06-02 05:17] LABS: ALANINE AMINOTRANSFERASE 8 U/L (12-78)
--- NOTE | 2021-06-02 07:15 | NUR ---
RN NOTE PATIENT ALERT AND RESPONSIVE, ON O2 2L VIA NASAL CANNULA. O2 SAT 98%. NO SIGNS OF ANY RESPIRATORY DISTRESS. KEPT CLEAN AND DRY. VOIDED X2. ALL NEEDS ATTENDED PROMPTLY. BED LOCKED AND IN LOWEST POSITION. CALL LIGHT WITHIN REACH. ENDORSED TO AM SHIFT AND ENDORSED REGARDING PATIENTS BELONGINGS (DENTURES, RIGHT EAR HEARING AID, CELLPHONE).
[2021-06-02] MEDS: SEVELAMER CARBONATE 800 MG TABLET PO SCH ×3 (07:37→17:36)
[2021-06-02] MEDS: VIT B CMPLX 3/FA/VIT C/BIOTIN 1 TAB TABLET PO SCH (07:38)
[2021-06-02] MEDS: DOCUSATE SODIUM 250 MG CAPSULE PO SCH (07:38)
[2021-06-02] MEDS: FAMOTIDINE (20 MG) 20 MG TABLET PO SCH (07:38)
--- NOTE | 2021-06-02 08:00 | NUR ---
OPENING NOTE: REPORT RECEIVED FROM DANICA SALINAS. PT ATTEMPTED TO SLAP AND HIT RN MULTIPLE TIMES DURING ASSESSMENT OF IV SITE. 4 STAFF MEMBERS REQUIRED TO CALM PATIENT DOWN AND APPLY RESTRAINTS. IV SITE WAS ASSESSED, COBAN DRESSING REMOVED FROM RIGHT WRIST AND FOREARM, APPEARED TO BE SNUG, PRESENT WHEN PATIENT ARRIVED FROM [facility] ACCORDING TO REPORT. HAT LACER AT BEDSIDE ASSESSING WOUNDS WHILE OTHER STAFF AT BEDSIDE. PT CHECKED ON HOURLY AND PRN BY NURSING STAFF.
--- NOTE | 2021-06-02 08:10 | NUR ---
WOUND CARE CONSULT: LIMITED ASSESSMENT DUE TO PT VERY COMBATIVE. LEFT UPPER ARM WOUND NOTED WITH SEROSANGUINOUS DRAINAGE. SACRAL WOUND NOTED IN ADMISSION PHOTO. SURGICAL CONSULT CALLED TO DR KIMBLE. RECOMMENDATIONS MADE FOR SKIN PROTECTION. DISCUSSED WITH NURSING STAFF. MD IN AGREEMENT WITH PLAN OF CARE.
[2021-06-02] MEDS ORDERED: Z GUARD REMEDY 2 OZ OINT TP PRN (08:30)
[2021-06-02] MEDS: ASPIRIN EC 81 MG TABLET.DR PO SCH (10:55)
[2021-06-02] MEDS: METOPROLOL TARTRATE 50 MG TABLET PO SCH ×2 (10:56→17:00)
[2021-06-02] MEDS: Z GUARD REMEDY 2 OZ OINT TP SCH (10:56)
--- NOTE | 2021-06-02 12:00 | NUR ---
PT APPEARS TO BE CALMER AT THIS TIME. PT WAS COOPERATIVE AT 1200 ROUNDS. CONTINUE TO WAIT FOR DR VERMA TO CONFIRM IF THE ANGIOMAX GTT SHOULD BE INFUSING OR NOW. RN SPOKE TO PATIENTS SON HAYLEY, TELEPHONE CONSENT RECEIVED FOR HEART CATH AND FOR ANESTHESIA FOR PROCEDURE. WILL CONITNUE TO MONITOR PATIENT CLOSELY.
--- NOTE | 2021-06-02 15:55 | NUR ---
PER DR. OLVERA KEEP ANGIOMAX INFUSING AT 0.1MG/KG/HR TILL HEART CATH. HEART CATH SCHEDULED FOR TOMORROW AT 1PM PER DR OLVERA. DR. VERMA NOTIFIED. ORDERS GIVEN FOR DIET FOR PATIENT UNTIL MIDNIGHT.
[2021-06-02] MEDS ORDERED: EPOETIN ALFA (10,000 UNIT) 10,000 UNIT/ML VIAL IV PRN (17:00)
--- NOTE | 2021-06-02 17:00 | NUR ---
PT APPEARS TO BE COOPERATIVE AT THIS TIME. RESTRAINTS REMOVED Addendum: 06/02/21 at 1733 by JOHNNA BURGER RN Amended: Links added.
--- NOTE | 2021-06-02 19:20 | NUR ---
END OF SHIFT NOTE: PT IS SCHEDULED FOR HEART CATH AT 1300 TOMORROW. PT ATE ALL OF DINNER WITH MINIMAL ASSISTANCE. PT APPEARS COOPERATIVE AT THIS TIME. PT CHECKED ON HOURLY AND PRN BY NURSING STAFF.
--- NOTE | 2021-06-02 20:45 | NUR ---
ICU/HEAVY EQUIPMENT TECHNICIAN CALLED THE DETAIL TECHNICIAN ABOUT TURNING OFF ANGIOMAX 2-3 HRS BEFORE PROCEDURE AT [address]. DR MCPHERSON SAID TO CALL THE DETAIL TECHNICIAN TOMORROW TO ADDRESS THE TURNING OFF THE ANGIOMAX. WILL PASS ON TO DAY SHIFT ABOUT THIS.
[2021-06-02] MEDS: ATORVASTATIN 40 MG TABLET PO SCH (21:57)
[2021-06-03] VITALS (34 sets, daily range): BP systolic 95–206; BP diastolic 43–97
[2021-06-03 04:49] LABS: BASOPHILS % (AUTO) 0.2 % (0.0-2.0); EOSINOPHILS % (AUTO) 1.7 % (0.0-6.0); HEMATOCRIT 28 % (39-51); HEMOGLOBIN 8.8 g/dL (13.5-17.5); LYMPHOCYTES # (AUTO) 0.7 K/uL (0.8-4.8); LYMPHOCYTES % (AUTO) 11.5 % (20.0-44.0); MEAN CORPUSCULAR HGB CONC 32 g/dl (31.0-36.0); MEAN CORPUSCULAR VOLUME 102 fL (80-96); MONOCYTES # (AUTO) 0.7 K/uL (0.1-1.30); MONOCYTES % (AUTO) 10.5 % (2.0-12.0); NEUTROPHILS # (AUTO) 4.8 K/uL (1.8-8.9); NEUTROPHILS % (AUTO) 76.1 % (43.0-81.0); PLATELET COUNT (AUTO) 159 K/uL (150-450); RED BLOOD CELL COUNT(AUTO) 2.69 MIL/uL (4.5-6.0); WHITE BLOOD COUNT (AUTO) 6.3 K/uL (4.3-11.0)
[2021-06-03 04:58] LABS: CALCIUM, SERUM 8.7 mg/dL (8.5-10.1); CARBON DIOXIDE 25 mmol/L (21-32); CHLORIDE 103 mmol/L (98-107); GLUCOSE 129 mg/dL (74-106); MAGNESIUM 1.8 mg/dL (1.8-2.4); PHOSPHORUS 5.3 mg/dL (2.5-4.9); POTASSIUM 4.8 mmol/L (3.5-5.1); SODIUM SERUM 140 mmol/L (136-145); UREA NITROGEN, BLOOD 55 mg/dL (7-18)
[2021-06-03 05:28] LABS: CREATININE 7.5 mg/dL (0.6-1.3)
[2021-06-03] MEDS: SEVELAMER CARBONATE 800 MG TABLET PO SCH ×3 (08:00→17:15)
--- NOTE | 2021-06-03 08:00 | NUR ---
rn notes seen patient a/o x1/2with confusion, and get irritable easily. patient NPO at this time because going cat lab scheduled procedure, infusing Anglomax 15ml/hr on right ac area intact. patient able to turn and reposition self in the bed, hard to follow direction. open fistula wound on right ua dressing intact. patient 161.1 lb on bed scale. no acute respiratory distress. plan today 1300 cat lab, after getting HD and transfer patient back to the [facility]. call light within to reach. will monitoring.
--- NOTE | 2021-06-03 08:25 | NUR ---
WOUND CARE FOLLOW UP: PT SEEN FOR SKIN ASSESSMENT AND NOTED TO HAVE INTACT DEEP TISSUE INJURY TO SACRUM AND LEFT UPPER ARM WOUND, PRESENT ON ADMISSION. DISCUSSED SKIN PROTECTION AND WOUND CARE RECOMMENDATIONS WITH NURSING STAFF AND HUBER GLEASON CURRENTLY ON CASE. PT COOPERATIVE DURING ASSESSMENT BUT BEGAN SCREAMING AFTER ASSESSMENT. MD IN AGREEMENT WITH PLAN OF CARE. Addendum: 06/03/21 at 0827 by ARNOLD HART WNDNU Amended: Links added.
[2021-06-03] MEDS ORDERED: HYDROGEL DRESSING 90 GM TUBE TP PRN (08:30)
[2021-06-03] MEDS: ASPIRIN EC 81 MG TABLET.DR PO SCH (09:00)
[2021-06-03] MEDS: VIT B CMPLX 3/FA/VIT C/BIOTIN 1 TAB TABLET PO SCH (09:00)
[2021-06-03] MEDS: METOPROLOL TARTRATE 50 MG TABLET PO SCH ×2 (09:00→17:15)
[2021-06-03] MEDS: FAMOTIDINE (20 MG) 20 MG TABLET PO SCH (09:00)
[2021-06-03] MEDS: DOCUSATE SODIUM 250 MG CAPSULE PO SCH (09:00)
--- NOTE | 2021-06-03 09:57 | NUR ---
rn notes per java grails developer Dr Ogden patient will getting HD before heart cat lab.
--- NOTE | 2021-06-03 09:57 | NUR ---
rn notes patient getting hemodialyzed now.
[2021-06-03] MEDS: Z GUARD REMEDY 2 OZ OINT TP SCH (11:45)
[2021-06-03] MEDS: HYDROGEL DRESSING 90 GM TUBE TP SCH (11:46)
--- NOTE | 2021-06-03 12:40 | NUR ---
RN NOTES HD FINISHED AT THIS TIME, OUTPUT WAS 1000ML.
--- NOTE | 2021-06-03 13:18 | NUR ---
RN NOTES STOP ANGIOMAX INFUSION AT THIS TIME BECAUSE OF PATIENT GOING LEFT HEART ARTERERY/VENTRICLE ANGIOGRAM AT THIS TIME. PATIENT CONFUSED, A/O X1 , CONSENT WAS SIGNED VIA SON, BP -105/59, P-77, O2-98 ROOM AIR, R-22, T-97.7F, PATIENT REFUSING PAIN AT THIS TIME.
[2021-06-03] MEDS ORDERED: IV NS 0.9% 1,000 ML ONE (13:37)
[2021-06-03] MEDS ORDERED: FENTANYL PF 100MCG/2ML AMPUL ONE ×2 (13:37→14:41)
[2021-06-03] MEDS ORDERED: IODIXANOL 150 ML IV ONE (13:37)
[2021-06-03] MEDS ORDERED: IV SET PRIMARY PUMP SET 1 EA INFUS.SET MC ONE (13:37)
[2021-06-03] MEDS ORDERED: MIDAZOLAM HCL 2 MG/2ML VIAL ONE (13:38)
[2021-06-03] MEDS ORDERED: LIDOCAINE HCL/MPF 1% 30 ML VIAL IJ ONE (13:38)
--- NOTE | 2021-06-03 13:40 | NUR ---
RN OTES PATIENT DIRECTOR OF ARCHIVES AT THIS TIME FOR SCHEDULED ANGIOGRAM .
--- NOTE | 2021-06-03 15:19 | NUR ---
rn notes patient back at this time from heart phlebotomist medical lab assistant. patient awake, drowse because of sedation. vs taken bp- 131/67, p-67, o2-98 o2-2lnc, T-97.8. patient refused pain. dressing intact on right groin area, soft surrounding, no bleeding noted, pulse is present. per md order do nor resume Angiomax. keep patient flat within four hr, check dressing, and pulse. order taken and carried out.
[2021-06-03] MEDS: CLOPIDOGREL BISULFATE 75 MG TABLET PO SCH (15:40)
--- NOTE | 2021-06-03 16:00 | NUR ---
RN NOTES PATIENT RESTING, CHECKED RIGHT GROIN AREA, PULSE IS PRESENT, SOFT TO TOUCH SURROUNDING, NO BLEEDING NOTED. WILL MONITORING.
--- NOTE | 2021-06-03 17:00 | NUR ---
RN NOTES DUE MEDICATION ADMINISTERED, , NEEDS ATTENDED AND ANTICIPATED, PATIENT A/O X1, FORGETFUL. ASSIST EATING DINNER TOLERATED 40%. GET ORDER TO TRANSFER TELE UNIT.
--- NOTE | 2021-06-03 17:40 | NUR ---
RN NOTES PATIENT TRANSFERRED TO THE TELE UNIT ROOM 309 BED 1. PATIENT STABLE, NO ACUTE RESPIRATORY DISTRESS, VSS, REFUSED PAIN. BEDSIDE REPORT GIVEN RN FOLLOW PLAN OF CARE.
--- NOTE | 2021-06-03 18:13 | NUR ---
KAYAKING INSTRUCTOR NOTE RECEIVED PATIENT IN BED IN STABLE CONDITION, WILL CONTINUE TO MONITOR
--- NOTE | 2021-06-03 18:20 | NUR ---
CREDIT CASHIER CLOSING NOTE PATIENT RESTING IN BED. PATIENT IS A/O X1. PATIENT IS BREATHING EVENLY AND NONLABORED ON ROOM AIR. PATIENT IS NOT IN ANY ACUTE DISTRESS. PATIENT ON TELE MONITOR SHOWING NSR. PATIENT DOES NOT COMPLAIN OF PAIN AT THIS TIME. VITALS WNL. PATIENT HAS IV ACCESS TO RAC # 20 PATENT AND INTACT. PATIENT IS S/P CATHETERIZATION PROCEDURE TOLERATED WELL. PATIENT WAS ORIENTED TO THE ROOM AND HOW TO USE THE CALL LIGHT. SAFETY MEASURES IN PLACE BED LOW LOCKED CALL LIGHT WITHIN REACH SIDE RAILS UP XX2. WILL ENDORSE TO ONCOMING SHIFT.
--- NOTE | 2021-06-03 19:48 | NUR ---
MARINE FARMER NOTES PATIENT IN BED WITH EYES CLOSED, EASY TO AROUSE. TALKING IN ANOTHER LANGUAGE. NO S/S OF APPARENT DISTRESS. NOT EXHIBITING PAIN VIA FLACC. SACK REPAIRER READING SR 75 WITH PVC. NO FLUIDS RUNNING AT THIS TIME. SAFETY IN PLACE.WILL CONTINUE TO MONITOR.
[2021-06-03] MEDS: ATORVASTATIN 40 MG TABLET PO SCH (22:07)
[2021-06-04] VITALS: BP 149/79
[2021-06-04 04:00] VITALS: BP 164/60
--- NOTE | 2021-06-04 04:51 | NUR ---
telecom network manager notes patient refusing wound treatment on his left upper arm. patient gets aggressive and hostile when touching L. arm. per patient doctor told him not to touch.
--- NOTE | 2021-06-04 05:41 | NUR ---
telephone operators supervisor notes patent bp 164/60. given hydralazine 10 mg. pulse 84. will cont. to monitor.
--- NOTE | 2021-06-04 07:23 | NUR ---
BITUMINOUS DISTRIBUTOR OPERATOR OPENING NOTES PATIENT RECEIVED AWAKE IN BED IN NO ACUTE SIGNS OF DISTRESS. HOB ELEVATED. A/O X2. ABLE TO MAKE NEEDS KNOWN. ANXIOUS AND EASILY GETS ANGRY. ON ROOM AIR, BREATHING EVEN AND UNLABORED. ON TELE MONITOR WITH CURRENT READING OF NSR, HR ON THE 80'S, NO C/O CARDIAC DISTRESS VOICED. RIGHT SUBCLAVIAN HD CATH IN PLACE WITH DRESSING C/D/I. IV SL ON RAC G# 20 INTACT AND PATENT. SAFETY MEASURES IN PLACE: BED IS LOW AND WHEELS LOCKED, SIDE RAILS UP X2 AND CALL LIGHT WITHIN REACH. WILL CONTINUE TO MONITOR
--- NOTE | 2021-06-04 07:34 | NUR ---
tele closing rn report given to oli for continuity of care.
[2021-06-04 08:00] VITALS: BP 141/98
[2021-06-04] MEDS: DOCUSATE SODIUM 250 MG CAPSULE PO SCH (08:42)
[2021-06-04] MEDS: FAMOTIDINE (20 MG) 20 MG TABLET PO SCH (08:42)
[2021-06-04] MEDS: ASPIRIN EC 81 MG TABLET.DR PO SCH (08:42)
[2021-06-04] MEDS: CLOPIDOGREL BISULFATE 75 MG TABLET PO SCH (08:42)
[2021-06-04] MEDS: VIT B CMPLX 3/FA/VIT C/BIOTIN 1 TAB TABLET PO SCH (08:42)
[2021-06-04 08:43] VITALS: BP 141/98
[2021-06-04] MEDS: SEVELAMER CARBONATE 800 MG TABLET PO SCH ×2 (08:43→13:00)
[2021-06-04] MEDS: METOPROLOL TARTRATE 50 MG TABLET PO SCH ×2 (08:43→17:00)
[2021-06-04] MEDS: HYDROGEL DRESSING 90 GM TUBE TP SCH (08:47)
[2021-06-04] MEDS: Z GUARD REMEDY 2 OZ OINT TP SCH (08:48)
[2021-06-04] MEDS ORDERED: VIT1TABL44 PO (10:23)
[2021-06-04] MEDS ORDERED: CLOP75TA15 PO (10:23)
[2021-06-04] MEDS ORDERED: SEVE800T7 PO (10:23)
--- NOTE | 2021-06-04 14:49 | NUR ---
RN DISCHARGED NOTES PT DISCHARGED HOME IN STABLE CONDITION. PT A/O X2-3 WITH MILD CONFUSION NOTED. V/S TAKEN , STABLE AND RECORDED. PHOTOS OF SKIN ISSUES TAKEN AND FILED IN HIS CHART. ALL BEGINNINGS CHECKED, COUNTED AND SIGNED BELONGINGS LIST FORM. IV ACCESS ON RAC G#20 REMOVED WITH NO ACTIVE BLEEDING NOTED, DRY PRESSURE DRESSING APPLIED TO SITE. NAME ARMBAND REMOVED. SMOKING CESSATION EDUCATION GIVEN TO PT, VERBALIZED UNDERSTANDING. PT LEFT UNIT AT 1630 VIA WHEELCHAIR ACCOMPANIED BY ME AND LUIS LAMAS. PT'S SON BENJIE IN THE LOBBY, DISCHARGE INSTRUCTIONS GIVEN TO HIM AND HE VERBALIZED UNDERSTANDING. CHARGE NURSE AWARE OF DISCHARGE
== END 2021-06-04 16:30 | disposition home health service (06) | DRG 280 ==
LOC: ICU 06-02 00:02 → MED 06-03 18:18 → TELE 06-03 18:27
PROVIDERS: ADMIT Nurse Practitioner Acute Care; ATTEND Nurse Practitioner Acute Care
PROC: 4A023N7 Measurement of Cardiac Sampling and Pressure, Left Heart, Percutaneous Approach (ICD-10-PCS; principal; 2021-06-03)
PROC: B211YZZ Fluoroscopy of Multiple Coronary Arteries using Other Contrast (ICD-10-PCS; 2021-06-03)
PROC: B215YZZ Fluoroscopy of Left Heart using Other Contrast (ICD-10-PCS; 2021-06-03)
PROC: 5A1D70Z Performance of Urinary Filtration, Intermittent, Less than 6 Hours Per Day (ICD-10-PCS; 2021-06-03)
DX: I25.10 Atherosclerotic heart disease of native coronary artery without angina pectoris (principal); I21.A1 Myocardial infarction type 2; G93.41 Metabolic encephalopathy; N18.6 End stage renal disease; I12.0 Hypertensive chronic kidney disease with stage 5 chronic kidney disease or end stage renal disease; F03.90 Unspecified dementia, unspecified severity, without behavioral disturbance, psychotic disturbance, mood disturbance, and anxiety; E78.5 Hyperlipidemia, unspecified; F17.210 Nicotine dependence, cigarettes, uncomplicated; J44.9 Chronic obstructive pulmonary disease, unspecified; E11.22 Type 2 diabetes mellitus with diabetic chronic kidney disease; I42.9 Cardiomyopathy, unspecified; D63.1 Anemia in chronic kidney disease; E83.9 Disorder of mineral metabolism, unspecified; D63.8 Anemia in other chronic diseases classified elsewhere; L89.156 Pressure-induced deep tissue damage of sacral region; Z99.2 Dependence on renal dialysis; Z95.5 Presence of coronary angioplasty implant and graft; Z79.4 Long term (current) use of insulin
CPT/HCPCS: 36415; 71045-TC; 80048-TC; 80053-TC; 80061-TC; 83735-TC; 83880; 84100-TC; 84443-TC; 84484-TC; 85025-TC; 85610-TC; 85730-TC; 87070-TC; 87081-TC; 90935-TC; A6248; A6403; C1887; C1894; G0378; G0500; J0360; J1644; J2250; J3010; J3490; J7030; J7040; Q9967

== ENCOUNTER 2021-09-12 16:14 | Inpatient (IN) | payer MEDICARE, OTHER ==
[~2021-09-12] VITALS: Ht 165.1 cm; Wt 74.4 kg
[~2021-09-12 16:14] MED LIST changes: -CETI-233 PO; -CLON0.1T PO; +CLOP75TA15 PO; -FLUO15CR2 TP; -MYRBETRIQ PO; -ROPI0.255 PO; +SEVE800T7 PO; -TICA90TA PO; -TRAM50TA2 PO; +VIT1TABL44 PO
--- NOTE | 2021-09-12 16:20 | NUR ---
PT [email or web address], from home, missed 2 HD c/o weakness. HD AV FISTULA TO WANDA; NO ACTIVE BLEEDING NOTED. PT A/OX2. TOLERATING R/A WELL AT 98% WITH NO SOB. BLE PITTING EDEMA +2. CONNECTED PT TO POX AND MONITOR.
--- NOTE | 2021-09-12 16:38 | NUR ---
LFA #20G S/L; PATENT AND INTACT
--- NOTE | 2021-09-12 16:42 | NUR ---
PATIENT SAFETY ATTENDANT AT PT'S BEDSIDE
--- NOTE | 2021-09-12 17:01 | NUR ---
RADIATION OFFICER AT PT'S BEDSIDE
[2021-09-12 17:10] LABS: BASOPHILS # (AUTO) 0.1 K/uL (0.0-0.2); BASOPHILS % (AUTO) 1.1 % (0.0-2.0); EOSINOPHILS % (AUTO) 0.6 % (0.0-6.0); HEMATOCRIT 38 % (39-51); HEMOGLOBIN 10.7 g/dL (13.5-17.5); LYMPHOCYTES # (AUTO) 0.8 K/uL (0.8-4.8); LYMPHOCYTES % (AUTO) 8.8 % (20.0-44.0); MEAN CORPUSCULAR HGB CONC 28 g/dl (31.0-36.0); MEAN CORPUSCULAR VOLUME 102 fL (80-96); MONOCYTES # (AUTO) 0.8 K/uL (0.1-1.30); MONOCYTES % (AUTO) 8.1 % (2.0-12.0); NEUTROPHILS # (AUTO) 7.6 K/uL (1.8-8.9); NEUTROPHILS % (AUTO) 81.4 % (43.0-81.0); PLATELET COUNT (AUTO) 176 K/uL (150-450); RED BLOOD CELL COUNT(AUTO) 3.69 MIL/uL (4.5-6.0); WHITE BLOOD COUNT (AUTO) 9.4 K/uL (4.3-11.0)
[2021-09-12 17:22] LABS: CALCIUM, SERUM 8.9 mg/dL (8.5-10.1); CARBON DIOXIDE 24 mmol/L (21-32); CHLORIDE 107 mmol/L (98-107); GLUCOSE 84 mg/dL (74-106); SODIUM SERUM 143 mmol/L (136-145); UREA NITROGEN, BLOOD 59 mg/dL (7-18)
[2021-09-12 17:27] LABS: POTASSIUM 5.7 mmol/L (3.5-5.1)
[2021-09-12 17:28] LABS: BILIRUBIN,DIRECT 0.1 mg/dL (0.0-0.2); BILIRUBIN,TOTAL 0.4 mg/dL (0.2-1.0); CREATININE 8.5 mg/dL (0.6-1.3)
[2021-09-12 17:29] LABS: ALBUMIN 2.3 g/dL (3.4-5.0); ALKALINE PHOSPHATASE 82 U/L (46-116); ASPARTATE AMINOTRANSFERASE 11 U/L (15-37); TOTAL PROTEIN, SERUM 6.3 g/dL (6.4-8.2)
[2021-09-12 17:40] LABS: ALANINE AMINOTRANSFERASE 6 U/L (12-78)
[2021-09-12 18:02] LABS: BAND % (MANUAL) 4 % (0.0-5.0); LYMPHOCYTES % (MANUAL) 6 % (16-48); MONOCYTES % (MANUAL) 6 % (0-11.0); NEUTROPHILS % (MANUAL) 84 (42-76)
--- NOTE | 2021-09-12 18:07 | NUR ---
MOVE SHEET SUBMITTED AND CALLED FOR BED.
[2021-09-12] MEDS ORDERED: ASPIRIN 325 MG TABLET PO ONE (18:30)
[2021-09-12] MEDS ORDERED: SODIUM POLYSTYRENE SULFONATE 15 G/60 ML BOTTLE PO ONE (18:30)
[2021-09-12] MEDS ORDERED: Z GUARD REMEDY 2 OZ OINT TP PRN (19:00)
[2021-09-12] MEDS ORDERED: MAG HYDROX/AL HYDROX/SIMETH 30 ML UDC PO PRN (19:00)
[2021-09-12] MEDS ORDERED: ACETAMINOPHEN 325 MG TABLET PO PRN (19:00)
[2021-09-12] MEDS ORDERED: MAGNESIUM HYDROXIDE 30 ML UDC PO PRN (19:00)
[2021-09-12] MEDS ORDERED: ONDANSETRON HCL/PF 4 MG/2 ML VIAL IVP PRN (19:00)
[2021-09-12] MEDS ORDERED: ZOLPIDEM TARTRATE 5 MG TABLET PO PRN (19:00)
[2021-09-12] MEDS ORDERED: SODIUM POLYSTYRENE SULFONATE 15 G/60 ML BOTTLE ONE (19:42)
[2021-09-12] MEDS ORDERED: ASPIRIN 325 MG TABLET ONE (19:43)
--- NOTE | 2021-09-12 21:55 | NUR ---
REPORT GIVEN TO DANICA ARELLANO RN FOR RUDDY
[2021-09-12 22:22] VITALS: BP 143/57
--- NOTE | 2021-09-12 22:27 | NUR ---
PT TRANSFERRED TO [facility] 116 T VIA ACLS PROTOCOL. ALL BELONGINGS WITH PT
--- NOTE | 2021-09-12 22:30 | NUR ---
ADMITTING NOTES: NEW ADMISSION CAME IN AT 2222, 86 Y.O., MALE, CAME IN VIA GURNEY ACCOMPANIED BY 2 STAFF IN FLORAL ARTIST FROM ER, CONTINUE ON TELE-MONITOR, SR-RATE 83, ON ROOM AIR, A/O X1 ONLY, LOOKS CONFUSED, HE SPEAKS LATVIAN AND ABLE TO COMMUNICATE WITH BENDER HELPER IN HUNGARIAN BUT LIMITED ONLY, CAN UNDERSTAND VERY LITTLE HUNGARIAN,CAME IN DUE TO WEAKNESS(HE MISSED 2 HEMODIALYSIS SESSION) HE HAS WANDA-FISTULA (+) BRUIT AND (+)THRILL, HE HAD HD CATH ON THE RU, PER ENDORSEMENT LEFT FISTULA IS NOT WORKING,KNOWN CASE OF CAD S/P LEFT HEART CATH WITH PTCA AND STENTING RCA ON 2019, NO SOB OR ANY SIGN OF RESPIRATORY DISCOMFORT,WHILE DOING SKIN ASSESSMENT HE HAD A LARGE BOWEL MOVEMENT(HE RECEIVED KAYEXALATE IN ER). BODY ASSESSMENT DONE: 1)WANDA-FISTULA RUC-HD CATH LEFT ARM FISTULA-NOT WORKING 2) IV SITE:LFA G#20 3)EDEMA PITTING: RIGHT UPPER ARM +++ LEFT UPPER ARM +++ RIGHT LOWER EXTREMITY ++++ LEFT UPPER EXTREMITY ++++ -BOTH UPPER AND LOWER EXTREMITY ELEVATED WITH PILLOWS 4)RIGHT [place] OLD/BLACK SCAB 5)RIGHT AND LEFT GROIN REDNESS 6)OLD BEDSORE RE OPENON THE SACRUM AREA AROUND 1CMX0.8CM SURROUNDED BY NON BLANCHABLE REDNESS 7)SKIN DISCOLORATION ON THE LEFT HIP 8)OLD SURGICAL SITE:RLE, CHEST AREA -ORIENTED TO UNIT AND STAFF, FALL, SAFETY AND ASPIRATION PRECAUTION OBSERVED, CLEANED AND BRIEF CHANGE. NO PAIN OR DISCOMFORT.
[2021-09-13] VITALS: BP 143/57
--- NOTE | 2021-09-13 00:33 | NUR ---
BRAD NOTES: -X RAY DEVELOPER-EVELYN NOTIFIED RN THAT PATIENT REFUSED FOR TROPONIN BLOOD TEST. -SHE HAD A TROPONIN TEST AT 2300 RESULT WITHIN NORMAL RANGE. Addendum: 09/13/21 at 0038 by ADNICA ALMEIDA RN ADDED NOTES: CN/BRAD NOTIFIED OF THE REFUSAL.
--- NOTE | 2021-09-13 03:36 | NUR ---
RN NOTES: AROUND 2149 RECEIVED ENDORSMENT FROM ANILA/RN/ER,HE IS 86 Y.O., MALE, BROUGHT BY AMBULANCE FROM HOME, WITH CHIEF COMPLAINED OF :WEAKNESS ,HE MISSED 2 HD SESSION. A/OX1-2,PASHTO SPEAKING, LITTLE CUBAN, LOOKS CONFUSED SECONDARY TO DEMENTIA,KNOWN CASE HTN/DM/CAD, BLOOD TEST DONE K-5.7, KAYEXALATE 30 GRAM GIVEN, , NO IV FLUIDS, IV CANNULA ON LFA G#20, PATENT, GIVEN ASPIRIN 325 MG IN ER, , ON SINUS RHYTHM RATE=73, FOR TELE MONITORING, CXR-CARDIOMEGALY WITH PULMONARY VASCULAR CONGESTION,BED RIDDEN, SKIN ISSUES:OLD SACRUM ULCER WITH EDEMA BUE,BLE. -AWAITING FOR ARRIVAL WITHIN 30 MINUTES.
[2021-09-13 04:00] VITALS: BP 147/65
--- NOTE | 2021-09-13 04:20 | NUR ---
RN NOTES: HE HAD HIS 2ND BOWEL MOVEMENT AT AROUND 0230,STOOL SEMI SOFT WITH SOME WATERY IN CONSISTENCY, CLEAN AND CHANGE.
[2021-09-13 06:51] LABS: BASOPHILS # (AUTO) 0.1 K/uL (0.0-0.2); BASOPHILS % (AUTO) 0.8 % (0.0-2.0); EOSINOPHILS % (AUTO) 0.7 % (0.0-6.0); HEMATOCRIT 36 % (39-51); HEMOGLOBIN 10.2 g/dL (13.5-17.5); LYMPHOCYTES # (AUTO) 0.9 K/uL (0.8-4.8); LYMPHOCYTES % (AUTO) 10.7 % (20.0-44.0); MEAN CORPUSCULAR HGB CONC 29 g/dl (31.0-36.0); MEAN CORPUSCULAR VOLUME 101 fL (80-96); MONOCYTES # (AUTO) 0.6 K/uL (0.1-1.30); MONOCYTES % (AUTO) 7.7 % (2.0-12.0); NEUTROPHILS # (AUTO) 6.5 K/uL (1.8-8.9); NEUTROPHILS % (AUTO) 80.1 % (43.0-81.0); PLATELET COUNT (AUTO) 192 K/uL (150-450); RED BLOOD CELL COUNT(AUTO) 3.52 MIL/uL (4.5-6.0); WHITE BLOOD COUNT (AUTO) 8.1 K/uL (4.3-11.0)
[2021-09-13 07:24] LABS: CALCIUM, SERUM 8.9 mg/dL (8.5-10.1); CARBON DIOXIDE 23 mmol/L (21-32); CHLORIDE 108 mmol/L (98-107); GLUCOSE 64 mg/dL (74-106); MAGNESIUM 2.1 mg/dL (1.8-2.4); PHOSPHORUS 5.5 mg/dL (2.5-4.9); POTASSIUM 5.9 mmol/L (3.5-5.1); SODIUM SERUM 144 mmol/L (136-145); UREA NITROGEN, BLOOD 63 mg/dL (7-18)
[2021-09-13 07:34] LABS: CREATININE 8.9 mg/dL (0.6-1.3)
--- NOTE | 2021-09-13 07:43 | NUR ---
RN NOTES: PATIENT ABLE TO SLEEP AND REST, NO SIGN OF RESPIRATORY DISTRESS, KEPT ON CLOSE WATCH, ENDORSED FOR CONTINUITY OF CARE, TO F/U HD SCHEDULE, TO F/U MED RECON AND VACCINE RECORD OF THE PATIENT WITH THE FAMILY, FALL AND SAFETY PRECAUTION OBSERVED.
--- NOTE | 2021-09-13 07:48 | NUR ---
MS BRAD OPENING NOTES RECEIVED PT AWAKE, ALERT WITH NO S/SX OF RESPIRATORY DISTRESS. PT IS AUSTRALIAN SPEAKING AND ON ROOM AIR RESTING COMFORTABLY IN SIDE LYING POSITION. PT HAS A LFA 20G SL FLUSHED, PATENT AND IN TACT. PT WILL BE TRANSFERRING TO [facility] ROOM 320-1. SAFETY MEASURES IN PLACE WITH BED IN LOWEST LOCKED POSITION, SIDE RAILS UP X2, AND CALL LIGHT WITHIN REACH. Addendum: 09/13/21 at 0817 by RAVIN LUCERO RN PT IS GOING TO 323-2. REPORT GIVEN TO NADIR
[2021-09-13 08:00] VITALS: BP 147/62
--- NOTE | 2021-09-13 08:18 | NUR ---
RN OPENING NOTE RECEIVED REPORT FROM BRAD ALICIA FOR RUDDY
[2021-09-13 08:59] LABS: THYROID STIMULATING HORMONE 1.154 uIU/mL (0.358-3.74)
[2021-09-13] MEDS: PANTOPRAZOLE 40 MG TABLET.DR PO SCH (09:13)
--- NOTE | 2021-09-13 09:40 | NUR ---
RN NOTE PATIENT WAS TRANSFERRED TO ROOM 323-1 VIA BED. VS BP 134/63 AR 78 RR 18 T 97.7 SA02 96% BULGARIAN SPEAKING. ON ROOM AIR, DENIES SOB. IN NO APPARENT DISTRESS. IV ACCESS ON L FA #20G, INTACT AND PATENT. WANDA FISTULA, THRILL AND BRUIT PRESENT. R CW PERMACATH C/D/I. HAROON FISTULA NOTED, NOT WORKING. SAFETY MEASURES MAINTAINED. BED IN LOWEST POSITION, BRAKES LOCKED. SIDE RAILS UP X2. CALL LIGHT WITHIN REACH. WILL CONTINUE PLAN OF CARE.
[2021-09-13 16:00] VITALS: BP 140/58
[2021-09-13] MEDS: VALSARTAN 80 MG TABLET PO SCH (16:10)
[2021-09-13] MEDS: METOPROLOL TARTRATE 25 MG TABLET PO SCH (16:10)
[2021-09-13] MEDS: INSULIN REGULAR, HUMAN 100 UNIT/ML 3 ML VIAL SQ SCH (17:30)
--- NOTE | 2021-09-13 17:30 | NUR ---
RN NOTE PATIENT WAS TRANSFERRED TO ROOM 320-1
--- NOTE | 2021-09-13 17:50 | NUR ---
RN NOTE PATIENT'S BLOOD SUGAR IS 113. HELD REGULAR INSULIN.
--- NOTE | 2021-09-13 18:46 | NUR ---
RN CLOSING NOTE PATIENT RESTING IN BED. ON ROOM AIR, DENIES SOB. NO S/S OF RESPIRATORY DISTRESS. IV ACCESS ON L FA #20G, INTACT AND PATENT. WANDA FISTULA, THRILL AND BRUIT PRESENT. RCW PERMACATH C/D/I. HAROON FISTULA NOTED, NOT WORKING. DUE MEDS GIVEN ORDERED. ALL NEEDS HAVE BEEN MET AND ATTENDED. SAFETY MEASURES MAINTAINED. BED IN LOWEST POSITION, BRAKES LOCKED. SIDE RAILS UP X2. KEPT CALL LIGHT WITHIN REACH. WILL ENDORSE CONTINUITY OF CARE TO ONCOMING SHIFT. .
--- NOTE | 2021-09-13 19:35 | NUR ---
COMPUTER NETWORK AND SYSTEMS ENGINEER OPENING NOTES RECEIVED PATIENT LAYING AWAKE IN BED. A/O X2. PATIENT WITH REGULAR AND UNLABORED BREATHING ON ROOM AIR, TOLERATED WELL. NO SIGNS AND SYMPTOMS OF DISTRESS NOTED. NO COMPLAIN OF PAIN OR DISCOMFORT AT THIS TIME. S.R. @ 69 BPM. IV ACCESS LFA G #20 SL. ACCESS PATENT AND INTACT. WANDA AV FISTULA SAFETY PRECAUTIONS ENFORCED WITH BED LOCKKED AND AT LOWEST POSITION SIDERAILS UP X2. CALL LIGHT WITHIN REACH AT ALL TIES. WILL CONTINUE TO MONITOR PATIENT. Addendum: 09/14/21 at 0550 by KATHY ALEJO RN PATIENT REFUSED TELE MONITOR EXPLAINED REASON BENEFIT AND OFFERED MULTIPLE TIMES.
[2021-09-13 20:00] VITALS: BP 127/62
[2021-09-13 20:30] VITALS: BP 127/72
--- NOTE | 2021-09-13 20:50 | NUR ---
process area supervisor notes Spoke with Gabrielle Nails regarding meds Uloric. Informed to bring Uloric meds tomorrow morning. Per am nurse, pharmacy doesn't carry uloric meds. Gabrielle verbalized understanding and will bring the meds and appreciate the info.
[2021-09-13] MEDS: INSULIN GLARGINE, 100 UNIT/ML CARTRIDGE SQ SCH (22:00)
--- NOTE | 2021-09-13 22:00 | NUR ---
MANAGER LPN NOTE PATIENT BLOOD SUGAR WAS 111 MG/DL HELD LANTUS AND PATIENT REFUSED. NO SIGNS AND SYMPTOMS OF HYPOGLYCEMIA. WILL CONTINUE TO MONITOR.
[2021-09-13] MEDS: ATORVASTATIN 40 MG TABLET PO SCH (22:45)
[2021-09-13] MEDS: TAMSULOSIN 0.4 MG CAP.SR.24H PO SCH (22:45)
[2021-09-14] VITALS (8 sets, daily range): BP systolic 118–158; BP diastolic 51–76
[2021-09-14] MEDS: INSULIN REGULAR, HUMAN 100 UNIT/ML 3 ML VIAL SQ SCH ×2 (06:34→12:00)
--- NOTE | 2021-09-14 06:48 | NUR ---
HORSE TREKKING GUIDE CLOSING NOTES PATIENT STILL LAYING AWAKE IN BED. A/O X2. PATIENT WITH REGULAR AND UNLABORED BREATHING ON ROOM AIR, TOLERATED WELL. NO SIGNS AND SYMPTOMS OF DISTRESS NOTED. NO COMPLAIN OF PAIN OR DISCOMFORT AT THIS TIME. IV ACCESS LFA G #20 SL. ACCESS PATENT AND INTACT. WANDA AV FISTULA SAFETY PRECAUTIONS ENFORCED WITH BED LOCKKED AND AT LOWEST POSITION SIDERAILS UP X2. CALL LIGHT WITHIN REACH AT ALL TIES. WILL ENDORSE CONTINUITY OF CARE TO DAY SHIFT NURSE.
--- NOTE | 2021-09-14 07:30 | NUR ---
PT RECEIVED RESTING COMFORTABLY IN BED. NO S/S OR C/O PAIN OR DISTRESS NOTED. SIDE RAILS UP X2, CALL LIGHTS LEFT WITHIN REACH. WILL CONTINUE PLAN OF CARE.
[2021-09-14] MEDS: METOPROLOL TARTRATE 25 MG TABLET PO SCH ×2 (08:49→17:00)
[2021-09-14] MEDS: PANTOPRAZOLE 40 MG TABLET.DR PO SCH (08:49)
[2021-09-14] MEDS: ASPIRIN 81 MG TAB.CHEW PO SCH (08:49)
[2021-09-14] MEDS: NIFEdipine XL (30MG) 30 MG TAB PO SCH (08:49)
[2021-09-14] MEDS: ISOSORBIDE MONONITRATE (30MG) 30 MG TAB.SR.24H PO SCH (08:49)
[2021-09-14] MEDS: VALSARTAN 80 MG TABLET PO SCH ×2 (08:50→17:00)
[2021-09-14] MEDS ORDERED: FAMOTIDINE 40 MG TABLET PO SCH (09:00)
--- NOTE | 2021-09-14 10:53 | NUR ---
WOUND CARE CONSULT: PT PRESENTS WITH DISCOLORATION TO LEFT HIP/LOWER BACK, SACRAL AND LEFT LOWER BUTTOCK STAGE 3 ULCERS, PRESENT ON ADMISSION. DR ELEUTERIO JOAQUIN NOTIFIED OF SURGICAL CONSULT REQUEST. PT NOTED TO HAVE LOWER EXTREMITY EDEMA. RECOMMENDATIONS MADE FOR WOUND CARE AND SKIN PROTECTION. DISCUSSED WITH NURSING STAFF. MD IN AGREEMENT WITH PLAN OF CARE.
[2021-09-14] MEDS ORDERED: HYDROGEL DRESSING 90 GM TUBE TP PRN (11:00)
[2021-09-14] MEDS ORDERED: DEXTROSE 50%-WATER 50 ML DISP.SYRIN IV PRN (14:00)
[2021-09-14] MEDS ORDERED: INSULIN REGULAR, HUMAN 100 UNIT/ML 3 ML VIAL SQ PRN (14:00)
--- NOTE | 2021-09-14 15:11 | NUR ---
SS Consult: SS consult for pressure sores from home. Pt. Is an 86-year-old male. Pt. speaks Uruguayan, SW contact interrupter using the blue phone. Interrupter ID: [id number]. There was a language barrier and pt. were hard of hearing. Interrupter had to repeat herself multiple times. SW was able to get some questions answered. Pt. demonstrates adequate insight to the reason for hospitalization. Per pt., he was brought to hospital by his son Gabrielle [[phone]]. Pt. was oriented x3, and alert. During interview, pt. was capable of following directions, but was hard of hearing. SW explored pt.s living situation. Per pt., he told interrupter that he lives in a facility, but according to nurse, Valdez, pt. mentioned he lives with family [[address] [place], [id number]]. Per pt., he has a caregiver. No further information was provided due to hard of hearing. Plan: SW provided available senior resources and pt. accepted. Resources Provided: ABUSE PREVENTION: ELDER ABUSE HOTLINE (09/05) ADULT PROTECTIVE SERVICES HOTLINE LONG-TERM CARE [facility] Region AREA ON AGING (HOTLINE) ADULT DAY HEALTH CARE CARE CENTERS: Private pay or [facility] funded adult day care [place] Adult Day Health Care [facility] , [facility] Integration Services , [facility] Adult [facility] Center , [facility] Adult [facility] Health Care , [facility] Adult Day Health Care , [facility] Adult Daycare Center , [place] ONE Generation Center , [facility] , [place] ALZHEIMERS DISEASE/DEMENTIA: Alzheimers Association Helpline [facility] www.alz.org/[facility] Department of Aging www.lacity.org Family Caregiver Hasty www.caregiver.org [place] Caregiver Resources Center/Family Support www.[facility].org CANCER RESOURCES: Syrian Cancer Society www.cancer.org Cancer Support Community www.CancerSupportVvsb.org: CancerCare www.cancercare.org [facility] Cancer Support [place] www.LivQuik.org [facility] HEALTH ASSOCIATIONS: AARP www.aarp.org ALS Association (ask for Tawny) www.als.org Syrian Diabetes Association www.diabetes.org Syrian Heart Association www.heart.org Syrian Lung Association www.lungusa.org Syrian Parkinson Disease Association www.apdaparkinson.org Syrian [place] , www.redcross.org Arthritis Foundation www.arthritis.org Crohns & Colitis Foundation of Syrian www.ccfa.org/chapters/bere National Multiple Sclerosis Society www.nationalmssociety.org Myasthenia Gravis Foundation www.myasthenia-ca.org National Stroke Association www.stroke.org CONSERVATORSHIP & GUARDIANSHIP: AARP Connie Guardado Legal Services Center for Health Care Rights Eldercare Information and Referral Licensing Services Clerk Foundation [facility]: [facility] Bar Referral Service [facility] Legal Services Office of the Public Guardian [place] EYESIGHT DISORDER RESOURCES: Syrian Macular Degeneration Foundation [facility] www.bath community hospitaltitmalone.org GRIEF AND BEREAVEMENT RESOURCES: The Gathering Place , [facility] THE HOPE Connection , [facility] Bereavement Center , [place] HEARING DISORDER RESOURCES: [place] Telephone Access Program Deaf and Disabled Telecommunications Program www.ddtp.cpu.ca.gov HearRx Hearing Centers ([place]) Better Hearing Systems , [place] GLAD ([facility] Agency on Deafness) V/ TTY; Manager Perioperative , [facility] Hearing [place] [facility] -low income hearing aid assistance www.trinity healthhearingfoundation.org [place] Hearing Care , [place] HELP AT HOME CAREGIVER SUPPORT: In Home Support Services (Must have Medi-Robert to be eligible) *Ask for a list of agencies that provide services to assist with care in the home. Local Senior Centers also have listings of care providers. HOME SAFETY MODIFICATIONS AND EQUIPMENT: Senior centers have additional referrals. [place] Housing and Community Investment Dept. Handyworker Program (low income) or Visit http://hcidla.ocean beach hospitality.org/hbn-xfwhnr-kz for more information National Seating and Mobility and/or ; Forever Active www.foreverCrossbarmed.com Stay Home Safe www.Stayhomesafe.com LIFE ALERT RESPONSE SYSTEM: Performance Labline Services 730-260-8689 www. SevenSnap Entertainment GmbH Life Alert [phone] www.lifealert.StarBlock.com Life Station 401-464-0565 www.Project WBSation.StarBlock.com Safe Return 636-755-6122 www.alz.or/safereturn Cell Phones for Seniors www.PraXcell MEALS AND FOOD PROGRAMS: [place] Meals on Wheels [phone] [place] Meals on Wheels [phone] [facility] [phone] [place] to the Homebound [phone] [place] to the Homebound [phone] [facility] to the Homebound [phone] [facility] to the Homebound [phone] [facility] [phone] [facility] [phone] ONE Generation [phone] [facility] [phone] [facility] [phone] Meals on Wheels [phone] For all ages: $6.85/ meal w side. Delivered M-F from 10 am-1pm. Application and payment is done over the phone. Frozen meals available for weekends. Emergency Food [facility] [phone] [facility] Per Diem Physical Therapist Assistant [phone] [facility] [phone] [facility]- Brown bag lunches [phone] [facility] [phone] MEAL/GROCERY DELIVERY PROGRAMS: [facility] Gourmet Meals [phone]- [facility] [phone]- [facility] Magic Kitchen [phone] Moms Meals [phone] (ask Gil for Discount Select grocery stores may provide delivery. MEDICAL INSURANCE SUPPORT SERVICES: Center for Health Care Rights [phone] Health Insurance Counseling/Advocacy Programs (HICAP)-Must have Medicare. Offers counseling for Medi-Robert eligibility [phone] Department of Public Per [place] Physical Therapist Assistant [phone] www.[facility].ca.gov Medicare [phone] www.socialsecurity.org Social Security [phone] SENIOR ACTIVITY PROGRAMS: *Contact a local senior center, adult school, recreation facility or community college for education, fitness, recreation, and social programs. Aquatic Therapy and Adapted Exercise programs through [facility] [phone] [facility] [phone] www.[facility]/encore H2U- Senior Friends [phone] [place] Senior Programs [phone] www.oasisnet.org Suddenly 65 www.lpuzwnyl80.StarBlock.com SENIOR CENTERS: [facility] [phone] [facility] [phone] [facility] [phone] [facility] [phone] [facility] [phone] [facility] [phone] [facility] [phone] [facility] [phone] [facility] [phone] [phone] [facility] [phone] [facility] [phone] [facility] [phone] TRANSPORTATION: Local [facility] may have applications for transportation programs and additional resources. ACCESS Services [phone] Transportation for seniors and disabled persons 7 days a week requiring 254 hr. advance reservation. Must apply and register for program prema eligible. Meshify [phone] or [phone] Transportation for seniors and persons with ADA card/metro disabled card in the [facility]. M-F only. Must register for services. ONE GENERATION [phone] Serves 65 years + in conjunction with city Athersyse program. Must be registered with both programs. A to B Transport [phone] Provides wheelchair/gurney van service. Adult Medical Transport [phone] Accepts Medi-robert with prior authorization. Care Van [phone] Provides wheelchair Transport. [facility] Wide Transportation [phone] Provides gurney service [facility] [phone] Gurney Transport. [facility] Transportation [phone] wheelchair & gurney transport [facility] Transportation [phone] wheelchair & gurney transport [place] Non-Emergency Transport [phone] wheelchair & gurney transport [facility] Living [place] [phone] Short Term Transportation primarily for adults with disabilities on social security income. Nominal fee may apply and a reservation is required. [facility] Cab [phone] or [phone] [facility] [phone] [place] [address] Services [phone] For additional programs & services VETERANS RESOURCES: Submissions for Aid and Attendance should be done directly to Federal VA office locatd at : [address] [address] X110 National Caregiver Support Line [phone] [facility] Veterans Services Field Office [phone] [place] Department of Affairs [phone] Pension Information [phone]
[2021-09-14] MEDS: HYDROGEL DRESSING 90 GM TUBE TP SCH (15:59)
[2021-09-14 16:53] LABS: BASOPHILS % (AUTO) 0.6 % (0.0-2.0); EOSINOPHILS % (AUTO) 0.7 % (0.0-6.0); HEMATOCRIT 30 % (39-51); HEMOGLOBIN 8.9 g/dL (13.5-17.5); LYMPHOCYTES # (AUTO) 0.7 K/uL (0.8-4.8); LYMPHOCYTES % (AUTO) 11.7 % (20.0-44.0); MEAN CORPUSCULAR HGB CONC 29 g/dl (31.0-36.0); MEAN CORPUSCULAR VOLUME 100 fL (80-96); MONOCYTES # (AUTO) 0.6 K/uL (0.1-1.30); MONOCYTES % (AUTO) 9.3 % (2.0-12.0); NEUTROPHILS # (AUTO) 4.9 K/uL (1.8-8.9); NEUTROPHILS % (AUTO) 77.7 % (43.0-81.0); PLATELET COUNT (AUTO) 151 K/uL (150-450); RED BLOOD CELL COUNT(AUTO) 3.03 MIL/uL (4.5-6.0); WHITE BLOOD COUNT (AUTO) 6.4 K/uL (4.3-11.0)
[2021-09-14] MEDS: BLOOD SUGAR DIAGNOSTIC 1 EACH STRIP IN SCH ×3 (17:09→22:56)
[2021-09-14 17:29] LABS: CALCIUM, SERUM 8.2 mg/dL (8.5-10.1); CARBON DIOXIDE 22 mmol/L (21-32); CHLORIDE 103 mmol/L (98-107); GLUCOSE 105 mg/dL (74-106); MAGNESIUM 1.9 mg/dL (1.8-2.4); PHOSPHORUS 5.7 mg/dL (2.5-4.9); POTASSIUM 5.4 mmol/L (3.5-5.1); SODIUM SERUM 136 mmol/L (136-145); UREA NITROGEN, BLOOD 71 mg/dL (7-18)
[2021-09-14 17:38] LABS: CREATININE 9.8 mg/dL (0.6-1.3)
--- NOTE | 2021-09-14 19:20 | NUR ---
TELE/RN OPENING NOTE RECEIVED PATIENT RESTING IN BED. AWAKE, ALERT AND ORIENTED X 4. ABLE TO MAKE NEEDS KNOWN. DENIES PAIN AT THIS TIME. CONTINUES ON ROOM AIR WITH NO S/SX OF RESPIRATORY DISTRESS NOTED. IV ACCESS TO LEFT FOREARM #20G INTACT, PATENT AND SALINE LOCKED. RIGHT UPPER ARM AV FISTULA IN PLACE WITH POSITIVE BRUIT AND THRILL. PATIENT CURRENTLY RECEIVING DIALYSIS THAT STARTED AT APPROX. 18:45. CONTINUES TO REFUSE TELE MONITOR. CALL LIGHT WITHIN REACH. ASPIRATION, FALL AND SAFETY PRECAUTIONS MAINTAINED. WILL CONTINUE TO MONITOR.
[2021-09-14 19:31] LABS: EOSINOPHILS % (MANUAL) 1 % (0-4); LYMPHOCYTES % (MANUAL) 18 % (16-48); MONOCYTES % (MANUAL) 7 % (0-11.0); NEUTROPHILS % (MANUAL) 74 (42-76)
--- NOTE | 2021-09-14 19:37 | NUR ---
CHANGE OF SHIFT REPORT PT RESTING COMFORTABLY IN BED. NO S/S OR C/O PAIN OR DISTRESS NOTED. SIDE RAILS UP X2, CALL LIGHT LEFT WITHIN REACH. PT KEPT CLEAN, DRY, AND COMFORTABLE. NO SIGNIFICANT CHANGES SINCE PREVIOUS SHIFT. HD ONGOING WILL GIVE REPORT TO NICOLE SALINAS.
[2021-09-14] MEDS: INSULIN GLARGINE, 100 UNIT/ML CARTRIDGE SQ SCH (22:00)
[2021-09-14] MEDS: ATORVASTATIN 40 MG TABLET PO SCH (22:56)
[2021-09-14] MEDS: TAMSULOSIN 0.4 MG CAP.SR.24H PO SCH (22:56)
[2021-09-15] VITALS: BP 108/65
--- NOTE | 2021-09-15 06:40 | NUR ---
TELE/RN CLOSING NOTE PATIENT CURRENTLY RESTING IN BED. AWAKE, ALERT AND ORIENTED X 4. ABLE TO MAKE NEEDS KNOWN. DENIES PAIN AT THIS TIME. CONTINUES ON ROOM AIR WITH NO S/SX OF RESPIRATORY DISTRESS NOTED. IV ACCESS TO LEFT FOREARM #20G INTACT, PATENT AND SALINE LOCKED. RIGHT IJ HD CATH IN PLACE WITH DRESSING CLEAN, DRY AND INTACT. COMPETED DIALYSIS LAST NIGHT WITH 2L REMOVED. CONTINUES ON TELE MONITOR WITH CURRENT READING SR WITH PVCS AND PACS. CALL LIGHT WITHIN REACH. ASPIRATION, FALL AND SAFETY PRECAUTIONS MAINTAINED. WILL ENDORSE PLAN OF CARE TO ONCOMING SHIFT.
[2021-09-15] MEDS: BLOOD SUGAR DIAGNOSTIC 1 EACH STRIP IN SCH ×4 (06:43→21:16)
[2021-09-15 08:00] VITALS: BP 135/72
[2021-09-15 08:08] LABS: BASOPHILS % (AUTO) 0.5 % (0.0-2.0); EOSINOPHILS % (AUTO) 0.7 % (0.0-6.0); HEMATOCRIT 29 % (39-51); HEMOGLOBIN 8.7 g/dL (13.5-17.5); LYMPHOCYTES # (AUTO) 0.7 K/uL (0.8-4.8); LYMPHOCYTES % (AUTO) 13.7 % (20.0-44.0); MEAN CORPUSCULAR HGB CONC 30 g/dl (31.0-36.0); MEAN CORPUSCULAR VOLUME 97 fL (80-96); MONOCYTES # (AUTO) 0.5 K/uL (0.1-1.30); MONOCYTES % (AUTO) 9.2 % (2.0-12.0); NEUTROPHILS # (AUTO) 3.9 K/uL (1.8-8.9); NEUTROPHILS % (AUTO) 75.9 % (43.0-81.0); PLATELET COUNT (AUTO) 133 K/uL (150-450); RED BLOOD CELL COUNT(AUTO) 3.03 MIL/uL (4.5-6.0); WHITE BLOOD COUNT (AUTO) 5.1 K/uL (4.3-11.0)
[2021-09-15 08:46] LABS: CALCIUM, SERUM 8.4 mg/dL (8.5-10.1); CARBON DIOXIDE 26 mmol/L (21-32); CHLORIDE 103 mmol/L (98-107); CREATININE 6.1 mg/dL (0.6-1.3); GLUCOSE 85 mg/dL (74-106); MAGNESIUM 1.7 mg/dL (1.8-2.4); PHOSPHORUS 3.7 mg/dL (2.5-4.9); POTASSIUM 4.2 mmol/L (3.5-5.1); SODIUM SERUM 137 mmol/L (136-145); UREA NITROGEN, BLOOD 40 mg/dL (7-18)
[2021-09-15] MEDS: ASPIRIN 81 MG TAB.CHEW PO SCH (08:54)
[2021-09-15] MEDS: ISOSORBIDE MONONITRATE (30MG) 30 MG TAB.SR.24H PO SCH (08:55)
[2021-09-15] MEDS: PANTOPRAZOLE 40 MG TABLET.DR PO SCH (08:55)
[2021-09-15] MEDS: FAMOTIDINE (20 MG) 20 MG TABLET PO SCH (08:55)
[2021-09-15] MEDS: NIFEdipine XL (30MG) 30 MG TAB PO SCH (08:55)
[2021-09-15] MEDS: METOPROLOL TARTRATE 25 MG TABLET PO SCH ×2 (08:55→17:00)
[2021-09-15] MEDS: VALSARTAN 80 MG TABLET PO SCH ×2 (08:56→17:00)
[2021-09-15] MEDS: HYDROGEL DRESSING 90 GM TUBE TP SCH (08:56)
[2021-09-15 09:00] VITALS: BP 135/72
[2021-09-15 16:00] VITALS: BP 112/58
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
--- NOTE | 2021-09-15 19:20 | NUR ---
TELE/RN OPENING NOTE RECEIVED PATIENT RESTING IN BED. AWAKE, ALERT AND ORIENTED X 3. ABLE TO MAKE NEEDS KNOWN. PRIMARILY SYRIAN SPEAKING. CONTINUES ON ROOM AIR WITH NO S/SX OF RESPIRATORY DISTRESS NOTED. IV ACCESS TO LEFT FOREARM #20G INTACT, PATENT AND SALINE LOCKED. RIGHT IJ HD CATH IN PLACE WITH CLEAN, DRY AND INTACT DRESSING. CONTINUES ON TELE MONITOR WITH CURRENT READING SR HR 76. CALL LIGHT WITHIN REACH. ASPIRATION, FALL AND SAFETY PRECAUTIONS MAINTAINED. WILL CONTINUE TO MONITOR.
[2021-09-15 19:58] VITALS: BP 104/49
[2021-09-15] MEDS: ATORVASTATIN 40 MG TABLET PO SCH (21:16)
[2021-09-15] MEDS: TAMSULOSIN 0.4 MG CAP.SR.24H PO SCH (21:16)
[2021-09-15] MEDS: INSULIN GLARGINE, 100 UNIT/ML CARTRIDGE SQ SCH (21:16)
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
[2021-09-16 00:01] VITALS: BP 114/53
--- NOTE | 2021-09-16 04:00 | NUR ---
TELE/RN NOTE TELE MONITOR SHOWS LEADS ARE OFF. PATIENT REFUSING TO BE TOUCHED OR LET US CHANGE LEADS OR DIAPER. ATTEMPTED WITH POLICE SHIFT COMMANDER WITH PATIENT REFUSING. WILL CONTINUE TO MONITOR.
[2021-09-16 04:30] VITALS: BP 130/63
--- NOTE | 2021-09-16 06:19 | NUR ---
TELE/RN CLOSING NOTE PATIENT CURRENTLY SLEEPING IN BED. ALERT AND ORIENTED X 3. ABLE TO MAKE NEEDS KNOWN. PRIMARILY BAHAMIAN SPEAKING. CONTINUES ON ROOM AIR WITH NO S/SX OF RESPIRATORY DISTRESS NOTED. IV ACCESS TO LEFT FOREARM #20G INTACT- PATIENT REFUSING TO HAVE DRESSING CHANGED OR IV FLUSHED. RIGHT IJ HD CATH IN PLACE WITH CLEAN, DRY AND INTACT DRESSING. CURRENTLY REFUSING TELE MONITOR LEAD CHANGE. CALL LIGHT WITHIN REACH. ASPIRATION, FALL AND SAFETY PRECAUTIONS MAINTAINED. WILL ENDORSE PLAN OF CARE TO ONCOMING SHIFT.
[2021-09-16] MEDS: BLOOD SUGAR DIAGNOSTIC 1 EACH STRIP IN SCH ×4 (06:35→17:13)
--- NOTE | 2021-09-16 06:55 | NUR ---
MS/RN NOTE PATIENT CONTINUING TO REFUSE TELE. TELE MONITORING D/C PER DR. CAZARES.
--- NOTE | 2021-09-16 07:28 | NUR ---
RN OPENING NOTES RECEIVED PATIENT IN BED. AWAKE, ALERT AND ORIENTED X 3. ABLE TO MAKE NEEDS KNOWN. ARABIC SPEAKING.ON ROOM AIR WITH NO S/SX OF RESPIRATORY DISTRESS NOTED. IV ACCESS TO LEFT FOREARM #20G INTACT, PATENT AND FLUSHES WELL. RIGHT IJ HD CATH IN PLACE WITH CLEAN, DRY AND INTACT DRESSING. CALL LIGHT WITHIN REACH. ASPIRATION, FALL AND SAFETY PRECAUTIONS MAINTAINED. BED ON LOWEST LOCKED POSITION, SIDE RAILS UP X 2, CALL LIGHT WITHIN EASY REACH. WILL CONTINUE TO MONITOR ACCORDINGLY.
[2021-09-16] MEDS: PANTOPRAZOLE 40 MG TABLET.DR PO SCH (07:37)
[2021-09-16 08:00] VITALS: BP 127/64
[2021-09-16] MEDS: FAMOTIDINE (20 MG) 20 MG TABLET PO SCH (08:12)
[2021-09-16] MEDS: ISOSORBIDE MONONITRATE (30MG) 30 MG TAB.SR.24H PO SCH (08:13)
[2021-09-16] MEDS: ASPIRIN 81 MG TAB.CHEW PO SCH (08:13)
[2021-09-16] MEDS: VALSARTAN 80 MG TABLET PO SCH ×2 (08:14→17:00)
[2021-09-16] MEDS: NIFEdipine XL (30MG) 30 MG TAB PO SCH (08:14)
[2021-09-16] MEDS: METOPROLOL TARTRATE 25 MG TABLET PO SCH ×2 (08:14→17:00)
[2021-09-16] MEDS: HYDROGEL DRESSING 90 GM TUBE TP SCH (08:16)
--- NOTE | 2021-09-16 09:19 | NUR ---
RN NOTES PATIENT REFUSED TO BE DRAWN BLOOD FOR LAB TEST.
[2021-09-16 12:00] VITALS: BP 112/54
[2021-09-16 14:06] LABS: BASOPHILS % (AUTO) 0.3 % (0.0-2.0); EOSINOPHILS % (AUTO) 0.3 % (0.0-6.0); HEMATOCRIT 32 % (39-51); HEMOGLOBIN 9.2 g/dL (13.5-17.5); LYMPHOCYTES # (AUTO) 0.7 K/uL (0.8-4.8); LYMPHOCYTES % (AUTO) 7.2 % (20.0-44.0); MEAN CORPUSCULAR HGB CONC 29 g/dl (31.0-36.0); MEAN CORPUSCULAR VOLUME 99 fL (80-96); MONOCYTES # (AUTO) 0.7 K/uL (0.1-1.30); MONOCYTES % (AUTO) 7.5 % (2.0-12.0); NEUTROPHILS # (AUTO) 7.6 K/uL (1.8-8.9); NEUTROPHILS % (AUTO) 84.7 % (43.0-81.0); PLATELET COUNT (AUTO) 146 K/uL (150-450); RED BLOOD CELL COUNT(AUTO) 3.18 MIL/uL (4.5-6.0)
[2021-09-16] MEDS ORDERED: EPOETIN ALFA (10,000 UNIT) 10,000 UNIT/ML VIAL IV SCH (15:00)
[2021-09-16 15:11] LABS: CALCIUM, SERUM 8.4 mg/dL (8.5-10.1); CARBON DIOXIDE 24 mmol/L (21-32); CHLORIDE 99 mmol/L (98-107); GLUCOSE 109 mg/dL (74-106); MAGNESIUM 1.9 mg/dL (1.8-2.4); PHOSPHORUS 4.8 mg/dL (2.5-4.9); POTASSIUM 5.2 mmol/L (3.5-5.1); SODIUM SERUM 131 mmol/L (136-145); UREA NITROGEN, BLOOD 56 mg/dL (7-18)
[2021-09-16 15:12] LABS: CREATININE 7.5 mg/dL (0.6-1.3)
[2021-09-16 17:00] VITALS: BP 106/52
--- NOTE | 2021-09-16 17:45 | NUR ---
RN NOTES S/P HEMODIALYSIS, 2L OUT. PATIENT ABLE TO TOLERATE PROCEDURE.
--- NOTE | 2021-09-16 18:00 | NUR ---
RN NOTES PATIENT IS FOR DISCHARGE TODAY TO [facility], REPORT GIVEN TO ZULY. PATIENT WILL BE ADMITTED AT ROOM 44C.
--- NOTE | 2021-09-16 19:28 | NUR ---
EFFICIENCY MANAGER NOTES DISCHARGED PATIENT IN STABLE CONDITION. VITAL SIGNS WITHIN NORMAL LIMITS. DISCHARGE INSTRUCTIONS AND INFORMATION/REPORT GIVEN TO ZULY SALINAS OF [facility] ([phone]). IV ACCESS REMOVED, COVERED WITH GAUZE. NO BLEEDING NOTED. SON AWARE OF DISCHARGE FACILITY PER FILM PAINTER. BELONGINGS ACCOUNTED AND SIGNED FOR BY 2 RN. PATIENT UNABLE TO SIGN. PATIENT WAS PICKED UP BY 2 EMT FROM [facility]. LEFT UNIT IN STABLE CONDITION. MD AND CHARGE NURSE AWARE OF DISCHARGE.
[2021-09-18 07:07] LABS: HEPATITIS Be AB Negative (Negative)
--- NOTE | 2021-09-22 14:17 | NUR ---
BYRON received call from APS workerLawanda [phone] asking for pt.'s apt number. BYRON addressed Lawanda's questions. BYRON will remain available as needed.
== END 2021-09-16 19:20 | DRG 640 ==
LOC: ER 20:18 → TELE1 21:21 → TELE 09-13 09:32 → MED 09-16 08:00
PROVIDERS: ADMIT Student in an Organized Health Care Education/Training Program; ATTEND Nurse Practitioner Family
PROC: 5A1D70Z Performance of Urinary Filtration, Intermittent, Less than 6 Hours Per Day (ICD-10-PCS; principal; 2021-09-14)
DX: E87.79 Other fluid overload (principal); L89.153 Pressure ulcer of sacral region, stage 3; N18.6 End stage renal disease; L89.323 Pressure ulcer of left buttock, stage 3; N17.0 Acute kidney failure with tubular necrosis; I21.A1 Myocardial infarction type 2; I12.0 Hypertensive chronic kidney disease with stage 5 chronic kidney disease or end stage renal disease; E44.1 Mild protein-calorie malnutrition; I42.9 Cardiomyopathy, unspecified; E87.5 Hyperkalemia; E11.22 Type 2 diabetes mellitus with diabetic chronic kidney disease; D63.1 Anemia in chronic kidney disease; E11.649 Type 2 diabetes mellitus with hypoglycemia without coma; E78.5 Hyperlipidemia, unspecified; F03.90 Unspecified dementia, unspecified severity, without behavioral disturbance, psychotic disturbance, mood disturbance, and anxiety; F17.210 Nicotine dependence, cigarettes, uncomplicated; I25.10 Atherosclerotic heart disease of native coronary artery without angina pectoris; J44.9 Chronic obstructive pulmonary disease, unspecified; Z79.4 Long term (current) use of insulin; Z68.27 Body mass index [BMI] 27.0-27.9, adult; E83.9 Disorder of mineral metabolism, unspecified; Z20.822 Contact with and (suspected) exposure to COVID-19; Z99.2 Dependence on renal dialysis; Z95.5 Presence of coronary angioplasty implant and graft
CPT/HCPCS: 36415; 71045-TC; 80048-TC; 80076-TC; 82962-TC; 83735-TC; 84100-TC; 84443-TC; 84484-TC; 85025-TC; 86707; 87081-TC; 87350; 90935-TC; 93307-TC; 97116-TC; 97530-TC; A6248; C9803; G0378; J0885; J1815; J7030